=== PATIENT | male | born 1975 | race African-American/Black ===

== ENCOUNTER 2018-10-30 18:26 | Emergency (ER) | payer OTHER ==
[2018-10-30] MEDS ORDERED: TETRACAINE HCL 0.5% 2ML OPTH ONE (19:02)
[2018-10-30] MEDS ORDERED: FLUORESCEIN SODIUM 0.6 MG/WRAP ONE (19:02)
[2018-10-30] MEDS ORDERED: TETANUS & DIPHTHERIA TOX,ADULT 0.5 ML VIAL ONE (19:03)
[2018-10-30] MEDS ORDERED: HYDROCODONE/APAP 5/325 MG TAB ONE (20:10)
[2018-10-30] MEDS ORDERED: TOBRAMYCIN SULF 0.3% OPTH OINT ONE (21:13)
[2018-10-30] MEDS ORDERED: DIPHENHYDRAMINE 25 MG TAB/CAP ONE (21:13)
[2018-10-30] MEDS ORDERED: METHYLPREDNISOLONE 125 MG INJ ONE (21:13)
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
[2018-10-30 21:56] VITALS: TEMP 98; O2SAT 100
[2018-10-30 21:59] VITALS: BP 146/97
== END 2018-10-30 21:49 | disposition home or self-care (01) ==
LOC: ER 18:26
DX: H11.421 Conjunctival edema, right eye (principal); Z23 Encounter for immunization
CPT/HCPCS: 90714; 96372; 99284; J2930

== ENCOUNTER 2020-07-06 21:18 | Emergency (ER) | payer OTHER, SELFPAY ==
--- OUTSIDE RECORDS SUMMARY | 2020-07-06 21:21 | XMS REPORT | Clinical Summary ---
:[address] [facility] Address [address] [place] [address] Care Team Providers Name Role Phone Unavailable Primary Care Provider Unavailable Allergies No Known Allergies Medications Medication Sig Dispensed Refills Start Date End Date Status famotidine (PEPCID) 40 Take 1 tablet by 90 tablet 3 06/28/2019 Active mg tabletIndications: mouth daily. Chronic alcoholic gastritis without hemorrhage mirtazapine (REMERON) Take 1 tablet by 30 tablet 3 06/27/2019 Active 15 mg mouth at bedtime tabletIndications: nightly. Chronic alcoholic gastritis without hemorrhage tamsulosin (FLOMAX) Take 1 capsule by 30 capsule 3 06/28/2019 Active 0.4 mg extended mouth daily. release capsuleIndications: Benign prostatic hyperplasia with urinary frequency Active Problems Problem Noted Date Chronic alcoholic gastritis without hemorrhage 019 Benign prostatic hyperplasia with urinary frequency Substance intoxication 06/27/2019 Overview: Alcohol, cocaine Substance use disorder Cocaine use disorder Marijuana use Acute pain of right wrist Rib pain on left side Visual hallucination Psychosis Substance induced mood disorder Cluster B personality disorder Overview: borderline, antisocial features Social History Tobacco Use Types Packs/Day Years Used Date Current Every Day Smoker Cigarettes 1 30 Smokeless Tobacco: Never Used Tobacco Cessation: Counseling Given: Yes Alcohol Use Drinks/Week oz/Week Comments Yes daily drinker Sex Assigned at Date Recorded Not on file Job Start Date Occupation Industry Not on file Not on file Not on file Travel History Travel Start Travel End No recent travel history available. Last Filed Vital Signs Not on file Plan of Treatment Health Maintenance Due Date Last Done Comments IMM Influenza Seasonal Aug to January (>/= 19 yrs) 08/19/2020 Results Not on fileafter 07/06/2019 Insurance Payer Benefit Plan / Subscriber ID Effective Phone Address T ype Group Dates MEDICARE MEDICARE PART A xxxxxxxxxxx 2017-Pres [phone] [id number] [place] [address] [facility] SELF-PAY SELF-PAY xxxxxxxxx 2019-Prese [phone] [place] [address] [facility] SELF-PA[employer] SELF-PAY xxxxxxx 2020- [id number] [place] [address] Advance Directives Code Status Date Activated Date Inactivated Comments Full Code 06/26/2019 1:35 AM 06/27/2019 5:47 PM
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
--- OUTSIDE RECORDS SUMMARY | 2020-07-06 21:24 | XMS REPORT | Continuity of Care Document ---
:1975 Author Organization [facility] t Address [address] [place] [address] Care Team Providers Name Role Phone Lul Ferguson Attending Clinician Nestor Silva Attending Clinician Uma Guaman Attending Clinician Oscar Xavier Attending Clinician Problems Condition Condition Condition Status Onset Resolution Last Treating Co mments Source Name Details Category Date Date Treatment Clinician Date Chronic Chronic Disease Active Estrella alcoholic alcoholic 06-27 Heal th gastritis gastritis 00:00: without without 00 hemorrhage hemorrhage Benign Benign Disease Active Estrella prostatic prostatic 06-27 Heal th hyperplasi hyperplasi 00:00: a with a with 00 urinary urinary frequency frequency 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Overview: Estrella intoxicati intoxicati 06-27 Alcohol, Health on on 00:00: cocaine 00 PSYCHOSIS Diagnosis Active 2020-02-11 Memoria 06-06 12:04:00 l 00:00: [place] PSYCHOSIS 00 Active 06/06/2019 [facility] LEG PAIN Diagnosis Active 2019-05-24 M emoria 05-24 11:55:00 l LEG PAIN 00:00: Bebo n 00 Active 05/24/2019 [facility] BACK PAIN Diagnosis Active 2016-04-28 Memoria 04-24 22:08:00 l BACK 00:00: [place] PAIN 00 Active 04/24/2016 [facility] LEFT FLANK Diagnosis Active [id number] Memoria PAIN 2-23 22:00:00 l LEFT 00:00: [place] FLANK PAIN 00 Active 11/10/2015 [facility] 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[facility] ris use use Health disorder disorder Cocaine Cocaine Disease Active [place] use use Health disorder disorder Marijuana Marijuana Disease Active [facility] ris use use Health Acute pain Acute pain Disease Active H arris of right of right Health wrist wrist Rib pain Rib pain Disease Active [facility] on left on left Health side side Visual Visual Disease Active [place] hallucinat hallucinat He alth ion ion Psychosis Psychosis Disease Active [facility] 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[facility] ris induced induced Health mood mood disorder disorder Cluster B Cluster B Disease Active Overview: [place] personalit personalit borderlin Health y disorder y disorder e, antisocia l features Acquired Problem Resolve 2019-06-09 Ms moria scoliosis d 21:19:26 l (disorder) Acquired He rmann scoliosis (disorder) Resolved Problem 06/09/2019 [facility] Allergies, Adverse Reactions, Alerts Allergy Allergy Status Severity Reaction(s) Onset Inactive Treating Comm ents Source Name Type Date Date Clinician No Known No Known Active Memori a Medicati Medicati l on on Ryan Allergie Allergie s s Social History Social Habit Start Date Stop Date Quantity Comments Source History of tobacco Cigarette Smoker [facility] use Sex Assigned At [facility] alth Cigarettes smoked 2019-06-27 2019-06-[address] [facility] current (pack per 00:00:00 00:00:00 day) - Reported Cigarette 2019-06-27 2019-06-[address] [facility] pack-years 00:00:00 00:00:00 Alcohol intake 2019-06-27 2019-06-27 Current drinker [facility] 00:00:00 00:00:00 of alcohol (finding) Social History 2019-06-07 2019-06-07 [facility] 08:09:07 08:09:07 Alcohol Comment 2019-05-27 2019-05-[address] [facility] 00:00:00 00:00:00 Smoking Status Start Date Stop Date Source Current every day smoker 2019-06-27 00:00:00 [facility] Social [facility] Medications Ordered Filled Start Stop Current Ordering Indication Dosage Frequency Signature Comments Components Source Medication Medication Date Date Medication? Clinician (SIG) Name Name famotidine 2018- Yes Chronic 40mg QD Take 1 Iglesias rris (PEPCID) 40 8-10 alcoholic tablet by Health mg tablet 00:00: gastritis mouth 00 without daily. hemorrhage tamsulosin Yes Benign .4mg QD Take 1 Darrell ris (FLOMAX) 8-10 prostatic capsule by Health 0.4 mg 00:00: hyperplasia mouth extended 00 with daily. release urinary capsule frequency mirtazapine Yes Chronic 15mg Take 1 H arris (REMERON) 8-09 alcoholic tablet by Health 15 mg 00:00: gastritis mouth at tablet 00 without bedtime hemorrhage nightly. Xylocaine No Notes: Memori a Viscous 2% 7-20 (Same as: l mucous 10:13: Xylocaine) Mary Lou nn membrane 00 solution Al No Notes: Memoria hydroxide/M 7-20 (aluminum l g 10:12: hydroxide- [place] hydroxide/s 00 magnesium imethicone hyd-simeth icone 200-200-20 mg/5ml 30 ml ud FRANKIE) GI cocktail No 30 mL, Nathaniel olman (aluminum 7-20 Route: PO, l hydroxide/m 08:54: Dosing Herm zora agnesium 00 Weight hydroxide/l 93.182, idocaine/si kg, ONCE, methicone) STAT, Start date: 06/07/19 3:54:00 CDT, Stop date: 06/07/19 3:54:00 CDT Famotidine No Notes: Memor ia 7-20 (Same as: l 08:54: Pepcid) [place] 00 Fentanyl No Notes: Memoria 04-24 (Same as: l 13:48: Sublimaze) Ryan 00 Preservat kari free. Sodium No 1,000 mL, Memori a Chloride 04-24 1000 l 0.154 12:31: ml/hr, [place] MEQ/ML 00 Infuse Injectable Over: 1 Solution hr, Route: IV, 1,000, Drug form: INJ, ONCE, Priority: STAT, Dosing Weight 86.364 kg, Start date: 04/24/16 7:31:00 CDT, Duration: 1 doses or times, Stop date: 04/24/16 7:31:00 CDT Morphine No 4 mg, Memoria 04-24 Route: l 11:43: IVP, Drug Ryan 00 form: INJ, ONCE, Dosing Weight 86.364, kg, Priority: STAT, Start date: 04/24/16 6:43:00 CDT, Stop date: 04/24/16 6:43:00 CDT Zofran No Notes: Memoria 04-24 (Same as: l 10:12: Zofran) [place] MEDICATION WASTE Product Size: 4 mg Product Wasted: ___ mg Zofran No 4 mg, Memoria 04-24 Route: l 09:51: IVP, Drug [place] form: INJ, ONCE, Dosing Weight 86.364, kg, Priority: STAT, Start date: 04/24/16 4:51:00 CDT, Stop date: 04/24/16 4:51:00 CDT Orphenadrin No 60 mg, 2 Me moria e 6-06 mL, Route: l 09:32: IVP, Drug [place] form: INJ, ONCE, Dosing Weight 86.364, kg, Priority: STAT, Start date: 04/24/16 4:32:00 CDT, Stop date: 04/24/16 4:32:00 CDT ketOROLAC No 4 days Memor ia 30 mg/mL 04-24 l injectable 09:32: MEDICATION H ermann solution WASTE Product Size: 30 mg Product Wasted: ___ mg Morphine No Notes: Memoria 04-24 (Same l 09:32: as:MORPhin [place] 00 e Sulfate) Saline No Notes: Memoria Flush 0.9% 04-24 Same as: l 09:09: BD [place] 00 Posiflush Sterile Ibuprofen 2014-11 No Notes: Memori a 01-11 (Same as: l 22:31: Motrin) Ryan 00 "Do Not Crush" Take with food. potassium 2014-11 No 20 mEq, Memor ia chloride 01-11 Route: PO, l 19:34: Drug form: [place] 00 ERTAB, ONCE, Dosing Weight 75, kg, Priority: STAT, Start date: 11/10/15 13:34:00, Stop date: 11/10/15 13:34:00 Ketorolac 2014-11 No 4 days Memor ia 2-23 l 15:08: MEDICATION [place] 00 WASTE Product Size: 30 mg Product Wasted: ___ mg Saline 2014-11 No Notes: Memoria Flush 0.9% 2-23 Same as: l 15:08: BD [place] 00 Posiflush Sterile Vital Signs Vital Name Observation Time Observation Value Comments Source Respitory Rate 2019-06-07 14:10:00 Memori al [place] Temperature Oral (F) 2019-06-07 14:10:00 97.9 F [facility] [place] Heart Rate 2019-06-07 14:10:00 [facility] [place] Systolic (mm Hg) 2019-06-07 14:10:00 Nathaniel rial [place] Diastolic (mm Hg) 2019-06-07 14:10:00 Mem orial [place] Temperature Oral (F) 2019-06-07 08:09:00 98.4 F [facility] [place] Respitory Rate 2019-06-07 08:09:00 Memori al [place] Heart Rate 2019-06-07 08:09:00 [facility] [place] Systolic (mm Hg) 2019-06-07 08:09:00 Nathaniel rial [place] Diastolic (mm Hg) 2019-06-07 08:09:00 Mem orial [place] BMI Calculated 2019-06-07 05:55:00 Memori al [place] Weight 2019-06-07 05:55:00 [facility] [place] Temperature Oral (F) 2019-06-07 05:55:00 98.4 F [facility] [place] Respitory Rate 2019-06-07 05:55:00 Memori al [place] Heart Rate 2019-06-07 05:55:00 [facility] [place] Height 2019-06-07 05:55:00 185.42 cm [facility] [place] Systolic (mm Hg) 2019-06-07 05:55:00 Nathaniel rial [place] Diastolic (mm Hg) 2019-06-07 05:55:00 Mem orial [place] Temperature Oral (F) 2019-05-25 21:00:00 98.4 F [facility] [place] Heart Rate 2019-05-25 21:00:00 [facility] [place] Respitory Rate 2019-05-25 21:00:00 Memori al [place] Systolic (mm Hg) 2019-05-25 21:00:00 Nathaniel rial [place] Diastolic (mm Hg) 2019-05-25 21:00:00 Mem orial [place] Heart Rate 2019-05-25 16:00:00 [facility] [place] Temperature Oral (F) 2019-05-25 16:00:00 98.1 F [facility] [place] Respitory Rate 2019-05-25 16:00:00 Memori al [place] Systolic (mm Hg) 2019-05-25 16:00:00 Nathaniel rial [place] Diastolic (mm Hg) 2019-05-25 16:00:00 Mem orial [place] Heart Rate 2019-05-25 10:30:00 [facility] [place] Temperature Oral (F) 2019-05-25 10:30:00 98.1 F [facility] [place] Respitory Rate 2019-05-25 10:30:00 Memori al [place] Systolic (mm Hg) 2019-05-25 10:30:00 Nathaniel rial [place] Diastolic (mm Hg) 2019-05-25 10:30:00 Mem orial [place] Weight 2019-05-24 11:20:00 [facility] [place] Systolic (mm Hg) 2016-04-24 13:43:00 Nathaniel rial [place] Diastolic (mm Hg) 2016-04-24 13:43:00 Mem orial [place] Temperature Oral (F) 2016-04-24 13:43:00 97.8 F [facility] [place] Respitory Rate 2016-04-24 13:43:00 Memori al [place] Heart Rate 2016-04-24 13:43:00 [facility] [place] Systolic (mm Hg) 2016-04-24 11:40:00 Nathaniel rial [place] Diastolic (mm Hg) 2016-04-24 11:40:00 Mem orial [place] Respitory Rate 2016-04-24 11:40:00 Memori al [place] Temperature Oral (F) 2016-04-24 11:40:00 97.8 F [facility] [place] Heart Rate 2016-04-24 11:40:00 [facility] [place] Respitory Rate 2016-04-24 07:54:00 Memori al [place] Temperature Oral (F) 2016-04-24 07:54:00 97.7 F [facility] [place] Height 2016-04-24 07:54:00 187.96 cm [facility] [place] Weight 2016-04-24 07:54:00 [facility] [place] BMI Calculated 2016-04-24 07:54:00 Memori al [place] Heart Rate 2016-04-24 07:54:00 [facility] [place] Systolic (mm Hg) 2016-04-24 07:54:00 Nathaniel rial [place] Diastolic (mm Hg) 2016-04-24 07:54:00 Mem orial [place] Heart Rate 2015-11-11 06:39:00 [facility] [place] Temperature Oral (F) 2015-11-11 06:39:00 97.9 F [facility] [place] Respitory Rate 2015-11-11 06:39:00 Memori al [place] Systolic (mm Hg) 2015-11-11 06:39:00 Nathaniel rial [place] Diastolic (mm Hg) 2015-11-11 06:39:00 Mem orial [place] Systolic (mm Hg) 2015-11-11 04:23:00 Nathaniel rial [place] Diastolic (mm Hg) 2015-11-11 04:23:00 Mem orial [place] Respitory Rate 2015-11-11 04:23:00 Memori al [place] Heart Rate 2015-11-11 04:23:00 [facility] [place] Temperature Oral (F) 2015-11-11 04:23:00 97.7 F [facility] [place] Systolic (mm Hg) 2015-11-10 22:40:00 Nathaniel rial [place] Diastolic (mm Hg) 2015-11-10 22:40:00 Mem orial [place] Respitory Rate 2015-11-10 22:40:00 Memori al [place] Heart Rate 2015-11-10 22:40:00 [facility] [place] Temperature Oral (F) 2015-11-10 22:40:00 97.7 F [facility] [place] Weight 2015-11-10 14:41:00 [facility] [place] Height 2015-11-10 14:41:00 185.42 cm [facility] [place] BMI Calculated 2015-11-10 14:41:00 Memori al [place] Procedures Procedure Date / Time Performed Performing Clinician Sour e Spinal operation Memorial Bebo n Splenectomy [facility] [place] Plan of Care Planned Activity Planned Date Details Comments Source Future Scheduled Test 2020-08-19 00:00:[address] [facility] Seasonal Aug to January (>/= 19 yrs) [code = IMM Influenza Seasonal Aug to January (>/= 19 yrs)] Encounters Start End Encounter Admission Attending Care Care Encounter Source Date/Time Date/Time Type Type Clinicians Facility Department ID 2019-07-14 2019-07-14 Outpatient [facility] [id number] [address] [place] [address] 00:00:00 00:00:00 Health 2019-07-08 2019-07-08 Outpatient [facility] [id number] [place] 00:00:00 00:00:00 Health 2019-06-26 2019-06-26 Outpatient [facility] [id number] [place] 07:30:29 07:30:29 Health 2019-06-25 2019-06-25 Emergency [facility] [id number] [place] 22:51:50 22:51:50 Health 2019-06-25 2019-06-25 Outpatient [facility] [id number] [place] 08:00:22 08:00:22 Health 2019-06-12 2019-06-12 Outpatient [facility] [id number] [place] 00:00:00 00:00:00 [facility] 2019-06-07 2019-06-07 Outpatient Marty [facility] [id number] 00:31:47 09:47:00 Lzizy Mccarty 2019-06-07 2019-06-07 Emergency E [facility] [id number] [facility] 00:31:00 00:31:00 2019-06-06 2019-06-06 Emergency [facility] [id number] [place] 07:31:55 07:31:55 Health 2019-05-27 2019-05-27 Emergency [facility] [id number] [place] 09:49:06 09:49:06 Health 2019-05-27 2019-05-27 Emergency [facility] [id number] [place] 08:10:12 08:10:12 [facility] 2019-05-24 2019-05-25 Outpatient Ricardo [facility] [id number] 06:15:41 16:59:00 Danieljavy Baez 2019-05-24 2019-05-24 Emergency E [facility] [id number] [facility] 06:15:00 06:15:00 2016-04-24 2016-04-24 Outpatient Obi [facility] [id number] 02:42:00 09:36:00 Cristel osorio 01 Uma 2015-11-10 2015-11-11 Outpatient Logan Xavier [facility] [id number] 08:40:00 00:48:00 Oscar 00 Results Test Description Test Time Test Comments Results Result Comments Source RPR Qualitative 2019-06-20 07:09:29 Test Item Value Reference Range Interpretation Comme nts RPR Qual (test code = RPR Qual) Non-Reactive Non-Reactive Reactive Control (test code = Reactive Control) Reactive Weak Reactive Control (test code = Weak Reactive Weak Reactive Control) Non-Reactive Control (test code = Non-Reactive Non-Reactive Control) Lot # (test code = Lot #) [id number] Expiration Dt (test code = Expiration Dt) 09/18/2020 N Thyroid Stimulating [id number] 04:02:31 Test Item Value Reference Range Interpretation Comments TSH (test code = TSH) 1.240 mIU/mL 0.270-4.200 Lipid [id number] 03:53:56 Test Item Value Reference Range Interpretation Comments Cholesterol Total 198 mg/dL 0-200 RISK OF HE ART (test code = DISEASEPublishe d by Cholesterol Total) [place] [employer] Adenike lyte Optimal Borderl ine Increased RiskC HOL <200 200-239 >2 40TRIG <150 150-199 >2 00HDL Male >60 <40H DL Female >60 <5 0LDL <100 130-159 >1 60LDL Near optimal is 100-129 Triglycerides (test 98 mg/dL 9-200 code = Triglycerides) HDL (test code = HDL) 79 mg/dL 40-60 H LDL (test code = LDL) 99 mg/dL 0-130 The eq uation being used in this calcula tion is LDL = (Chol - H DL) - (Trig / 5) VLDL (test code = 20 mg/dL 5-40 The equati on being used VLDL) in this calcula tion is VLDL = Trig / 5 Chol/HDL (test code = 2.5 ratio 0.0-5.0 Chol/HDL) LDL/HDL Ratio (test 1 N The equa tion being used code = LDL/HDL Ratio) in thi s calculation is LDL/HDL Ratio=L DL Calc/HDL Chol Comprehensive Metabolic [id number] 09:03:57 Test Item Value Reference Range Interpretation Comments Sodium Level (test 135.0 mmol/L 135.0-145.0 code = Sodium Level) Potassium Level 3.7 mmol/L 3.5-5.1 (test code = Potassium Level) Chloride Level (test 96 mmol/L 98-105 L code = Chloride Level) CO2 (test code = 32 mmol/L 22-29 H CO2) Anion Gap (test code 7 mmol/L 7-16 = Anion Gap) BUN (test code = 12.30 mg/dL 6.00-20.00 BUN) Creatinine Level 1.00 mg/dL 0.70-1.20 (test code = Creatinine Level) BUN/Creat Ratio 12 N (test code = BUN/Creat Ratio) Glucose Level (test 141 mg/dL 70-115 H code = Glucose Level) Calcium Level (test 8.7 mg/dL 8.3-10.5 code = Calcium Level) Alk Phos (test code 154 U/L 40-129 H = Alk Phos) Bilirubin Total 0.8 mg/dL 0.1-0.9 (test code = Bilirubin Total) Albumin Level (test 4.3 g/dL 3.5-5.2 code = Albumin Level) Protein Total (test 7.0 g/dL 6.4-8.3 code = Protein Total) ALT (test code = 216 U/L 1-41 H ALT) AST (test code = 138 U/L 1-40 H AST) Globulin (test code 2.7 g/dL 2.9-3.1 L = Globulin) A/G Ratio (test code 1.6 ratio N = A/G Ratio) eGFR AA (test code = >60 N eGFR (e stimated eGFR AA) mL/min/1.73 m2 Glomerular Filtration Rate ) is an estimated va lue, calculated from the patient's serum creatinine usin g the MDRD equation. It is NOT the patient 's actual GFR. The eGFR provides a more clinically usef ul measure of kidn ey disease than se rum creatinine alone.This calculation arjun es sex and race in to account, if the information is provided. If th e race is not provided, and t he patient is -Riya n, multiply by 1.2 12. If sex is not provided, and t he patient is fema le, multiply by 0.7 42. Results for pat ients <18 years of ag e have not been validated by th e MDRD study and should be interpreted wit h caution. eGFR R esult Interpretation: eGFR > or = 60 is in the Normal RangeeGF R < 60 may mean kid alexey diseaseeGFR < 1 5 may mean kidney failure Rang es recommended by the National Kidney Foundation, http://nkdep.ni h.gov Comprehensive Metabolic [id number] 09:03:57 Test Item Value Reference Range Interpretation Comments Sodium Level (test 135.0 mmol/L 135.0-145.0 code = Sodium Level) Potassium Level 3.7 mmol/L 3.5-5.1 (test code = Potassium Level) Chloride Level (test 96 mmol/L 98-105 L code = Chloride Level) CO2 (test code = 32 mmol/L 22-29 H CO2) Anion Gap (test code 7 mmol/L 7-16 = Anion Gap) BUN (test code = 12.30 mg/dL 6.00-20.00 BUN) Creatinine Level 1.00 mg/dL 0.70-1.20 (test code = Creatinine Level) BUN/Creat Ratio 12 N (test code = BUN/Creat Ratio) Glucose Level (test 141 mg/dL 70-115 H code = Glucose Level) Calcium Level (test 8.7 mg/dL 8.3-10.5 code = Calcium Level) Alk Phos (test code 154 U/L 40-129 H = Alk Phos) Bilirubin Total 0.8 mg/dL 0.1-0.9 (test code = Bilirubin Total) Albumin Level (test 4.3 g/dL 3.5-5.2 code = Albumin Level) Protein Total (test 7.0 g/dL 6.4-8.3 code = Protein Total) ALT (test code = 216 U/L 1-41 H ALT) AST (test code = 138 U/L 1-40 H AST) Globulin (test code 2.7 g/dL 2.9-3.1 L = Globulin) A/G Ratio (test code 1.6 ratio N = A/G Ratio) eGFR AA (test code = >60 N eGFR (e stimated eGFR AA) mL/min/1.73 m2 Glomerular Filtration Rate ) is an estimated va lue, calculated from the patient's serum creatinine usin g the MDRD equation. It is NOT the patient 's actual GFR. The eGFR provides a more clinically usef ul measure of kidn ey disease than se rum creatinine alone.This calculation arjun es sex and race in to account, if the information is provided. If th e race is not provided, and t he patient is -Riya n, multiply by 1.2 12. If sex is not provided, and t he patient is rosi le, multiply by 0.7 42. Results for pat ients <18 years of ag e have not been validated by e MDRD study and should be interpreted wit h caution. eGFR R esult Interpretation: eGFR > or = 60 is in the Normal RangeeGF R < 60 may mean kid alexey diseaseeGFR < 1 5 may mean kidney failure Rang es recommended by the National Kidney Foundation, http://nkdep.ni h.gov Alcohol [id number] 09:03:57 Test Item Value Reference Range Interpretation Comments Ethanol Level (test <0.00 g/dL 0.00-0.01 Intoxica maury 0.080 g/dL code = Ethanol or more Level) Ethanol Inst (test <0 N code = Ethanol Inst) Comprehensive Metabolic [id number] 09:03:57 Test Item Value Reference Range Interpretation Comments Sodium Level (test 135.0 mmol/L 135.0-145.0 code = Sodium Level) Potassium Level 3.7 mmol/L 3.5-5.1 (test code = Potassium Level) Chloride Level (test 96 mmol/L 98-105 L code = Chloride Level) CO2 (test code = 32 mmol/L 22-29 H CO2) Anion Gap (test code 7 mmol/L 7-16 = Anion Gap) BUN (test code = 12.30 mg/dL 6.00-20.00 BUN) Creatinine Level 1.00 mg/dL 0.70-1.20 (test code = Creatinine Level) BUN/Creat Ratio 12 N (test code = BUN/Creat Ratio) Glucose Level (test 141 mg/dL 70-115 H code = Glucose Level) Calcium Level (test 8.7 mg/dL 8.3-10.5 code = Calcium Level) Alk Phos (test code 154 U/L 40-129 H = Alk Phos) Bilirubin Total 0.8 mg/dL 0.1-0.9 (test code = Bilirubin Total) Albumin Level (test 4.3 g/dL 3.5-5.2 code = Albumin Level) Protein Total (test 7.0 g/dL 6.4-8.3 code = Protein Total) ALT (test code = 216 U/L 1-41 H ALT) AST (test code = 138 U/L 1-40 H AST) Globulin (test code 2.7 g/dL 2.9-3.1 L = Globulin) A/G Ratio (test code 1.6 ratio N = A/G Ratio) eGFR AA (test code = >60 N eGFR (e stimated eGFR AA) mL/min/1.73 m2 Glomerular Filtration Rate ) is an estimated va lue, calculated from the patient's serum creatinine usin g the MDRD equation. It is NOT the patient 's actual GFR. The eGFR provides a more clinically usef ul measure of kidn ey disease than se rum creatinine alone.This calculation arjun es sex and race in to account, if the information is provided. If th e race is not provided, and t he patient is -Riya n, multiply by 1.2 12. If sex is not provided, and t he patient is fema le, multiply by 0.7 42. Results for pat ients <18 years of ag e have not been validated by [facility] MDRD study and should be interpreted wit h caution. eGFR R esult Interpretation: eGFR > or = 60 is in the Normal RangeeGF R < 60 may mean kid alexey diseaseeGFR < 1 5 may mean kidney failure Rang es recommended by the National Kidney Foundation, http://nkdep.ni h.gov eGFR Non-AA (test >60.00 N eGFR (boby mated code = eGFR Non-AA) mL/min/1.73 m2 Glomer ular Filtration Rate ) is an estimated va lue, calculated from the patient's serum creatinine usin g the MDRD equation. It is NOT the patient 's actual GFR. The eGFR provides a more clinically usef ul measure of kidn ey disease than se rum creatinine alone.This calculation arjun es sex and race in to account, if the information is provided. If th e race is not provided, and t he patient is -Riya n, multiply by 1.2 12. If sex is not provided, and t he patient is fema le, multiply by 0.7 42. Results for pat ients <18 years of ag e have not been validated by [facility] MDRD study and should be interpreted wit h caution. eGFR R esult Interpretation: eGFR > or = 60 is in the Normal RangeeGF R < 60 may mean kid alexey diseaseeGFR < 1 5 may mean kidney failure Rang es recommended by the National Kidney Foundation, http://nkdep.ni h.gov Urine Drug [id number] 09:00:04 Test Item Value Reference Range Interpretation Comments Amphetamine Screen Ur POSITIVE Negative A (test code = Amphetamine Screen Ur) Barbiturate Screen Ur Negative Negative (test code = Barbiturate Screen Ur) Benzodiazepines Ur (test Negative Negative code = Benzodiazepines Ur) Cocaine Screen Ur (test POSITIVE Negative A code = Cocaine Screen Ur) U Methadone Scr (test Negative Negative code = U Methadone Scr) Opiate Screen Ur (test Negative Negative code = Opiate Screen Ur) U PCP Scrn (test code = Negative Negative U PCP Scrn) Cannabinoid Screen Ur POSITIVE Negative A (test code = Cannabinoid Screen Ur) U TCA (test code = U Negative Negative The res ults of all TCA) drug screen ramy ts are only preliminar y. Clinical consideration a nd professional ju dgment should be appli ed to any drug of abu se test result, particularly wh en preliminary pos itive results are obt ained. Please order a separate confir matory test if desired . Complete Blood Count with [id number] 08:56:00 Test Item Value Reference Range Interpretation Comments WBC (test code = WBC) 13.6 x10 4.4-10.5 H RBC (test code = RBC) 4.60 x10 4.10-5.70 Hgb (test code = Hgb) 14.0 g/dL 13.4-17.4 MCV (test code = MCV) 89.10 fL 80.00-100.00 Hct (test code = Hct) 41.0 % 38.7-52.0 MCHC (test code = 34.10 g/dL 32.00-37.50 MCHC) MCH (test code = MCH) 30.4 pg 27.0-32.5 RDW CV (test code = 13.8 % 11.5-14.5 RDW CV) Platelets (test code = 377.0 x10 140.0-440.0 Platelets) MPV (test code = MPV) 8.9 fL N Slide Review (test Auto Auto Result cr eated by code = Slide Review) GL_SJM_ SLIDE_REV_AUTO [id number] nRBC (test code = 0 N nRBC) NRBC Abs (test code = 0.00 x10 N NRBC Abs) Pos Diff XN (test code A N = Pos Diff XN) IPF (test code = IPF) 0 % N Automated [id number] 08:56:00 Test Item Value Reference Range Interpretation Comments Neutro Auto (test code = Neutro 60.3 % 36.0-70.0 Auto) Lymph Auto (test code = Lymph Auto) 25.4 % 12.0-44.0 Ray Auto (test code = Ray Auto) 11.8 % 0.0-11.0 H Eos, Auto (test code = Eos, Auto) 1.8 % 0.0-7.0 Basophil Auto (test code = Basophil 0.3 % 0.0-2.0 Auto) Neutro Absolute (test code = Neutro 8.2 x10 1.6-7.4 H Absolute) Lymph Absolute (test code = Lymph 3.45 x10 .50-4.60 Absolute) Ray Absolute (test code = Ray 1.60 x10 .00-1.20 H Absolute) Eos Absolute (test code = Eos 0.25 x10 0.00-0.74 Absolute) Baso Absolute (test code = Baso 0.04 x10 0.00-0.21 Absolute) IG [id number] 08:56:00 Test Item Value Reference Range Interpretation Comments IG (test code = IG) 0.4 % 0.0-5.0 IG Abs (test code = IG Abs) 0 x10 N Hepatic Function [id number] 07:34:47 Test Item Value Reference Range Interpretation Comments Protein Total (test 6.4 g/dL 6.4-8.3 code = Protein Total) Albumin Level (test 3.9 g/dL 3.5-5.2 code = Albumin Level) Bilirubin Total 0.2 mg/dL 0.1-0.9 (test code = Bilirubin Total) Bilirubin Direct <0.2 mg/dL 0.0-0.3 Direct Bili beckford (test code = methodology may be Bilirubin Direct) affected b y hemolysis. Bilirubin Indirect >0.00 mg/dL N (test code = Bilirubin Indirect) Alk Phos (test code 144 U/L 40-129 H = Alk Phos) AST (test code = 318 U/L 1-40 H AST) ALT (test code = 489 U/L 1-41 H ALT) A/G Ratio (test code 1.6 ratio N = A/G Ratio) Globulin (test code 2.5 g/dL 2.9-3.1 L = Globulin) Hepatic Function [id number] 08:08:04 Test Item Value Reference Range Interpretation Comments Protein Total (test 6.4 g/dL 6.4-8.3 code = Protein Total) Albumin Level (test 3.8 g/dL 3.5-5.2 code = Albumin Level) Bilirubin Total 0.3 mg/dL 0.1-0.9 (test code = Bilirubin Total) Bilirubin Direct <0.2 mg/dL 0.0-0.3 Direct Bili beckford (test code = methodology may be Bilirubin Direct) affected b y hemolysis. Bilirubin Indirect >0.10 mg/dL N (test code = Bilirubin Indirect) Alk Phos (test code 136 U/L 40-129 H = Alk Phos) AST (test code = 369 U/L 1-40 H AST) ALT (test code = 542 U/L 1-41 H ALT) A/G Ratio (test code 1.5 ratio N = A/G Ratio) Globulin (test code 2.6 g/dL 2.9-3.1 L = Globulin) US Abdomen [id number] 02:36:18Patient: PAULO GARCIA Date/Time06/08/2019 21:54 CDTReason for ExamElevated liver function testReportAFTER HOURS SERVICE ON: 06/09/2019 2:35 AMA bdominal Ultrasound, Right Upper QuadrantLocation Code V27Vxriezo: Elevated liver function testTechnique: Real-time silva scale, Doppler spectral analysis and Doppler color flow evaluation was performedusing a dedicated transducer.Findings:Examination limited. The lungs lobe of the liver, pancreas, aorta and IVC are not well visualized.The liver is homogeneous. There is no surface nodularity. No ascites in the abdomen.The gallbladder is not thickened and there is no pericholecystic fluid. There are no gallstones. There is no biliary dilatation. Common bile duct measures 5 mm.Right kidney measures 10 x 5 x 6 cm. There is a lower pole 2.9 x 2.9 x 2.6 cm anechoic cyst. No hydronephrosis or calculi are seen. Adequate arterial inflow and venous outflow noted in the kidney.Impression:No acute findings.Simple right renal cyst. Final Dictated by: MD Li Mohammad TDictated DT/TM:06/09/2019 2:35 amSigned by: MD Li Mohammad TSigned (Electronic Signature): 06/09/2019 2:36 amRPR [id number] 10:51:41 Test Item Value Reference Range Interpretation Comments RPR Qual (test code = RPR Qual) Non-Reactive Non-Reactive Reactive Control (test code = Reactive Reactive Control) Weak Reactive Control (test Weak Reactive code = Weak Reactive Control) Non-Reactive Control (test code Non-Reactive = Non-Reactive Control) Lot # (test code = Lot #) [id number] N Expiration Dt (test code = 10.31.20 N Expiration Dt) Thyroid Stimulating [id number] 08:39:04 Test Item Value Reference Range Interpretation Comments TSH (test code = TSH) 0.815 mIU/mL 0.270-4.200 Hemoglobin [id number] 03:57:32 Test Item Value Reference Range Interpretation Comments Hemoglobin A1c (test code 5.5 % 4.8-5.9 No n Diabetic = Hemoglobin A1c) 4.8-5.9%Di abetic <7.0% Aspartate [id number] 23:35:01 Test Item Value Reference Range Interpretation Comments AST (test code = AST) 622 U/L 1-40 H Alkaline Yptcjcllpno8882-47-79 23:35:01 Test Item Value Reference Range Interpretation Comments Alk Phos (test code = Alk Phos) 120 U/L 40-129 Acetaminophen [id number] 21:52:40 Test Item Value Reference Range Interpretation Comments Acetaminophen Level (test code <15.0 ug/mL(g) 15.0-30.0 = Acetaminophen Level) Salicylate [id number] 21:52:40 Test Item Value Reference Range Interpretation Comments Salicylate Level (test code = <0.3 mg/dL 0.3-10.0 Salicylate Level) Lipase [id number] 21:52:39 Test Item Value Reference Range Interpretation Comments Lipase Level (test code = Lipase 19 U/L 13-60 Level) Acute Hepatitis [id number] 21:21:54 Test Item Value Reference Range Interpretation Comments Hep A IgM (test code = Hep A IgM) Nonreactive Non Reactive Hep B Core Ab IgM (test code = Nonreactive Non Reactive Hep B Core Ab IgM) Hep Bs Ag (test code = Hep Bs Ag) Nonreactive Non Reactive Hep C Ab (test code = Hep C Ab) Reactive Non Reactive A Ammonia [id number] 20:53:09 Test Item Value Reference Range Interpretation Comments Ammonia Level (test code = 46.0 umol/L 11.0-35.0 H Ammonia Level) Prothrombin Time and [id number] 20:48:56 Test Item Value Reference Range Interpretation Comments Prothrombin Time (test code = 12.9 seconds 9.8-13.4 Prothrombin Time) INR (test code = INR) 1.1 ratio 0.6-1.2 Partial Thromboplastin [id number] 20:48:56 Test Item Value Reference Range Interpretation Comments Partial Thromboplastin Time 29.20 seconds 24.39-37.25 (test code = Partial Thromboplastin Time) Comprehensive Metabolic [id number] 19:11:35 Test Item Value Reference Range Interpretation Comments Sodium Level (test code = Sodium 140.0 mmol/L 135.0-145.0 Level) Potassium Level (test code = 4.6 mmol/L 3.5-5.1 Potassium Level) Chloride Level (test code = 100 mmol/L 98-105 Chloride Level) CO2 (test code = CO2) 24 mmol/L 22-29 Anion Gap (test code = Anion 16 mmol/L 7-16 Gap) BUN (test code = BUN) 14.70 mg/dL 6.00-20.00 Creatinine Level (test code = 1.10 mg/dL 0.70-1.20 Creatinine Level) BUN/Creat Ratio (test code = 13 N BUN/Creat Ratio) Glucose Level (test code = 113 mg/dL 70-115 Glucose Level) Calcium Level (test code = 9.3 mg/dL 8.3-10.5 Calcium Level) Alk Phos (test code = Alk Phos) 149 U/L 40-129 H Bilirubin Total (test code = 0.3 mg/dL 0.1-0.9 Bilirubin Total) Albumin Level (test code = 4.3 g/dL 3.5-5.2 Albumin Level) Protein Total (test code = 7.4 g/dL 6.4-8.3 Protein Total) ALT (test code = ALT) >700 U/L 1-41 H AST (test code = AST) >700 U/L 1-40 H Globulin (test code = Globulin) 3.1 g/dL 2.9-3.1 A/G Ratio (test code = A/G 1.4 ratio N Ratio) Comprehensive Metabolic [id number] 19:11:35 Test Item Value Reference Range Interpretation Comments Sodium Level (test 140.0 mmol/L 135.0-145.0 code = Sodium Level) Potassium Level 4.6 mmol/L 3.5-5.1 (test code = Potassium Level) Chloride Level (test 100 mmol/L 98-105 code = Chloride Level) CO2 (test code = 24 mmol/L 22-29 CO2) Anion Gap (test code 16 mmol/L 7-16 = Anion Gap) BUN (test code = 14.70 mg/dL 6.00-20.00 BUN) Creatinine Level 1.10 mg/dL 0.70-1.20 (test code = Creatinine Level) BUN/Creat Ratio 13 N (test code = BUN/Creat Ratio) Glucose Level (test 113 mg/dL 70-115 code = Glucose Level) Calcium Level (test 9.3 mg/dL 8.3-10.5 code = Calcium Level) Alk Phos (test code 149 U/L 40-129 H = Alk Phos) Bilirubin Total 0.3 mg/dL 0.1-0.9 (test code = Bilirubin Total) Albumin Level (test 4.3 g/dL 3.5-5.2 code = Albumin Level) Protein Total (test 7.4 g/dL 6.4-8.3 code = Protein Total) ALT (test code = >700 U/L 1-41 H ALT) AST (test code = >700 U/L 1-40 H AST) Globulin (test code 3.1 g/dL 2.9-3.1 = Globulin) A/G Ratio (test code 1.4 ratio N = A/G Ratio) eGFR AA (test code = >60 N eGFR (e stimated eGFR AA) mL/min/1.73 m2 Glomerular Filtration Rate ) is an estimated va lue, calculated from the patient's serum creatinine usin g the MDRD equation. It is NOT the patient 's actual GFR. The eGFR provides a more clinically usef ul measure of kidn ey disease than se rum creatinine alone.This calculation arjun es sex and race in to account, if the information is provided. If th e race is not provided, and t he patient is -Riya n, multiply by 1.2 12. If sex is not provided, and t he patient is fema le, multiply by 0.7 42. Results for pat ients <18 years of ag e have not been validated by th e MDRD study and should be interpreted wit h caution. eGFR R esult Interpretation: eGFR > or = 60 is in the Normal RangeeGF R < 60 may mean kid alexey diseaseeGFR < 1 5 may mean kidney failure Rang es recommended by the National Kidney Foundation, http://nkdep.ni h.gov Alcohol [id number] 19:11:35 Test Item Value Reference Range Interpretation Comments Ethanol Level (test 0.15 g/dL 0.00-0.01 H Intoxica maury 0.080 g/dL code = Ethanol or more Level) Ethanol Inst (test 150 N code = Ethanol Inst) Comprehensive Metabolic [id number] 19:11:35 Test Item Value Reference Range Interpretation Comments Sodium Level (test 140.0 mmol/L 135.0-145.0 code = Sodium Level) Potassium Level 4.6 mmol/L 3.5-5.1 (test code = Potassium Level) Chloride Level (test 100 mmol/L 98-105 code = Chloride Level) CO2 (test code = 24 mmol/L 22-29 CO2) Anion Gap (test code 16 mmol/L 7-16 = Anion Gap) BUN (test code = 14.70 mg/dL 6.00-20.00 BUN) Creatinine Level 1.10 mg/dL 0.70-1.20 (test code = Creatinine Level) BUN/Creat Ratio 13 N (test code = BUN/Creat Ratio) Glucose Level (test 113 mg/dL 70-115 code = Glucose Level) Calcium Level (test 9.3 mg/dL 8.3-10.5 code = Calcium Level) Alk Phos (test code 149 U/L 40-129 H = Alk Phos) Bilirubin Total 0.3 mg/dL 0.1-0.9 (test code = Bilirubin Total) Albumin Level (test 4.3 g/dL 3.5-5.2 code = Albumin Level) Protein Total (test 7.4 g/dL 6.4-8.3 code = Protein Total) ALT (test code = >700 U/L 1-41 H ALT) AST (test code = >700 U/L 1-40 H AST) Globulin (test code 3.1 g/dL 2.9-3.1 = Globulin) A/G Ratio (test code 1.4 ratio N = A/G Ratio) eGFR AA (test code = >60 N eGFR (e stimated eGFR AA) mL/min/1.73 m2 Glomerular Filtration Rate ) is an estimated va lue, calculated from the patient's serum creatinine usin g the MDRD equation. It is NOT the patient 's actual GFR. The eGFR provides a more clinically usef ul measure of kidn ey disease than se rum creatinine alone.This calculation arjun es sex and race in to account, if the information is provided. If th e race is not provided, and t he patient is -Riya n, multiply by 1.2 12. If sex is not provided, and t he patient is fema le, multiply by 0.7 42. Results for pat ients <18 years of ag e have not been validated by th e MDRD study and should be interpreted wit h caution. eGFR R esult Interpretation: eGFR > or = 60 is in the Normal RangeeGF R < 60 may mean kid alexey diseaseeGFR < 1 5 may mean kidney failure Rang es recommended by the National Kidney Foundation, http://nkdep.ni h.gov eGFR Non-AA (test >60.00 N eGFR (boby mated code = eGFR Non-AA) mL/min/1.73 m2 Glomer ular Filtration Rate ) is an estimated va lue, calculated from the patient's serum creatinine usin g the MDRD equation. It is NOT the patient 's actual GFR. The eGFR provides a more clinically usef ul measure of kidn ey disease than se rum creatinine alone.This calculation arjun es sex and race in to account, if the information is provided. If th e race is not provided, and t he patient is -Riya n, multiply by 1.2 12. If sex is not provided, and t he patient is fema le, multiply by 0.7 42. Results for pat ients <18 years of ag e have not been validated by th e MDRD study and should be interpreted wit h caution. eGFR R esult Interpretation: eGFR > or = 60 is in the Normal RangeeGF R < 60 may mean kid alexey diseaseeGFR < 1 5 may mean kidney failure Rang es recommended by the National Kidney Foundation, http://nkdep.ni h.gov Drugs of Abuse Urine [id number] 19:10:52 Test Item Value Reference Range Interpretation Comments Amphetamine Screen Ur POSITIVE Negative A For di agnostic (test code = Amphetamine pur poses only. Screen Ur) Positive result s should always b e assessed in conjunction wit h a patient's medic al history. Barbiturate Screen Ur Negative Negative (test code = Barbiturate Screen Ur) Benzodiazepines Ur (test Negative Negative code = Benzodiazepines Ur) Cocaine Screen Ur (test POSITIVE Negative A code = Cocaine Screen Ur) U Methadone (test code = Negative Negative U Methadone) Opiate Screen Ur (test Negative Negative code = Opiate Screen Ur) U PCP Scrn (test code = U Negative Negative PCP Scrn) U Propoxyphene (test code Negative Negative = U Propoxyphene) Cannabinoid Screen Ur POSITIVE Negative A (test code = Cannabinoid Screen Ur) Automated [id number] 18:00:02 Test Item Value Reference Range Interpretation Comments Neutro Auto (test code = Neutro 64.1 % 36.0-70.0 Auto) Lymph Auto (test code = Lymph Auto) 22.7 % 12.0-44.0 Ray Auto (test code = Ray Auto) 11.1 % 0.0-11.0 H Eos, Auto (test code = Eos, Auto) 1.5 % 0.0-7.0 Basophil Auto (test code = Basophil 0.3 % 0.0-2.0 Auto) Neutro Absolute (test code = Neutro 6.0 x10 1.6-7.4 Absolute) Lymph Absolute (test code = Lymph 2.13 x10 .50-4.60 Absolute) Ray Absolute (test code = Ray 1.04 x10 .00-1.20 Absolute) Eos Absolute (test code = Eos 0.14 x10 0.00-0.74 Absolute) Baso Absolute (test code = Baso 0.03 x10 0.00-0.21 Absolute) IG [id number] 18:00:02 Test Item Value Reference Range Interpretation Comments IG (test code = IG) 0.3 % 0.0-5.0 IG Abs (test code = IG Abs) 0 x10 N Complete Blood Count with Gvoxogowjjpg1025-42-64 18:00:01 Test Item Value Reference Range Interpretation Comments WBC (test code = WBC) 9.4 x10 4.4-10.5 RBC (test code = RBC) 4.79 x10 4.10-5.70 Hgb (test code = Hgb) 14.5 g/dL 13.4-17.4 Hct (test code = Hct) 42.9 % 38.7-52.0 MCV (test code = MCV) 89.60 fL 80.00-100.00 MCHC (test code = 33.80 g/dL 32.00-37.50 MCHC) MCH (test code = MCH) 30.3 pg 27.0-32.5 RDW CV (test code = 14.7 % 11.5-14.5 H RDW CV) Platelets (test code = 363.0 x10 140.0-440.0 Platelets) MPV (test code = MPV) 9.0 fL N Slide Review (test Auto Auto Result cr eated by code = Slide Review) GL_SJM_ SLIDE_REV_AUTO nRBC (test code = 0 N nRBC) NRBC Abs (test code = 0.00 x10 N NRBC Abs) IPF (test code = IPF) 0 % N CHEM [id number] 09:02:00 Test Item Value Reference Range Interpretation Comments B/C Ratio (test code = B/C Ratio) 14 1 6-25 [facility] shopatplacesannCHEM [id number] 09:02:0013.4[facility] HermannCHEM PANEL 2019-06-07 09:02:00 Test Item Value Reference Range Interpretation Comments A/G Ratio (test code = A/G Ratio) 0.8 1 0.7-1.6 [facility] shopatplacesannCHEM [id number] 09:02:004.3[facility] HermannCHEM PANEL 2019-06-07 09:02:93295Vvuptmfk HermannCHEM HSKXN1094-13-12 09:02:000.96[facility] HermannCHEM WHKLL9224-17-28 09:02:0013[facility] HermannCHEM LHDEM0400-23-27 09:02:69141Yzrnfary HermannCHEM BBNGG4517-99-35 09:02:004.4[facility]annCHEM YMUBW1347-33-88 09:02:0090[facility]annCHEM YLHHJ4320-77-33 09:02:009.3 [facility]annCHEM RBCOW7184-80-93 09:02:0027[facility]annCHEM PANEL 2019-06-07 09:02:65800Fmqjgyfz HermannCHEM QEODA1668-93-27 09:02:007.7[facility] HermannCHEM FJEMK7773-58-57 09:02:72358Tpdijsjw HermannCHEM WGYIM6969-88-15 09:02:003.4[facility] HermannCHEM NTHFG1594-46-30 09:02:86753Agyuaugg HermannCHEM GZWNC5641-48-13 09:02:65967Vngezwtz HermannCHEM OYBGI3417-93-13 09:02:000.4 [facility]annCHEM BNMTF4386-69-20 09:02:0063[facility]annHEMATOLOGY 2019-06-07 09:02:000.6[facility] JmhkyktHZSJRDSWYO6360-86-78 09:02:001.4[facility] KhumhxbYWRQGDIMHF2087-91-44 09:02:000.2[facility] FxbmebiTAOTDCKPRL1254-32-42 09:02:001.6[facility] FdkltaoGHFTOWWKDJ0295-41-45 09:02:000.1[facility] LPKVCOWBFR7352-77-87 09:02:002.8[facility] OzjctswKYIOLRTUHX7872-61-74 09:02:009.0 [facility] XkeonywEUNXVXDEGW1488-79-78 09:02:0011.8[facility] HermannHEMATOLOGY 2019-06-07 09:02:0020.3[facility] UtyfffpLFPRHEBUJX0824-81-32 09:02:0065.9[facility] CszorpwMTVGCHPZLG5900-04-51 09:02:00 Test Item Value Reference Range Interpretation Comments MCH (test code = MCH) 30.3 pg 27.0-31.0 [facility] MgkyawnDVYFKPPYOJ8261-57-25 09:02:0032.8[facility] HermannHEMATOLOGY 2019-06-07 09:02:0044.1[facility] KidjrdzKQOALXVITX6204-69-06 09:02:0014.5[facility] KegcpmdQLCFEOOZWU3983-11-18 09:02:004.78[facility] UwfoyyfEVHHICLQWW2412-13-14 09:02:75351Etlgwihd TxkgtzvAWWRLFHGVV6331-46-67 09:02:0092.2[facility] UTELHYGYZN6765-17-62 09:02:007.7[facility] OdmzdfwWNJLPSOFHK0299-26-25 09:02:00 14.9[facility] XohirpeCQUZXOHXGL5837-49-55 09:02:0013.7[facility] HermannTOXICOLOGY 2019-06-07 09:02:002.7[facility] HermannDRUG DXWMEQ5323-86-04 08:59:00See Note (06/07/19 3:59 AM)[facility]annDRUG DDLZKW3614-90-25 08:59:00Negative *NA*(06/07/19 3:59 AM)[facility]annDR[facility] CHLYZP9217-19-09 08:59:00Negative *NA*(06/07/19 3:59 AM)[facility] HermannDRUG JMLDRI3087-39-98 08:59:00Positive *ABN*(06/07/19 3:59 AM)[facility] HermannDRUG SCCQYB0552-75-67 08:59:00Positive *ABN*(06/07/19 3:59 AM)[facility] HermannDRUG UZGPNT4380-53-24 08:59:00Negative *NA*(06/07/19 3:59 AM)[facility] HermannDRUG HSJFCR6055-99-26 08:59:00Negative *NA*(06/07/19 3:59 AM)[facility] HermannDRUG QKHYEI6240-99-58 08:59:00Positive *ABN*(06/07/19 3:59 AM)[facility] PniudgzIQDQLNSAPJ2781-98-35 08:59:00Negative *NA*(06/07/19 3:59 AM)[facility] LucpaktHDTOOAZGKK9214-61-56 08:59:00<2 (06/07/19 3:59 AM)[facility]annURINE AND QHIGT4115-92-16 08:59:00Negative (06/07/19 3:59 AM)[facility] AND EYHGF3213-98-37 08:59:00Negative (06/07/19 3:59 AM) [facility] AMYMQ5716-05-36 08:59:000.2[facility] AND XHFAU4407-81-88 08:59:00Negative (06/07/19 3:59 AM)[facility] AND HNDLA1961-61-00 08:59:00Negative (06/07/19 3:59 AM)[facility] AND OPPGY8791-63-29 08:59:00Negative *NA*(06/07/19 3:59 AM)[facility] AND LTEVQ9606-22-72 08:59:00Negative (06/07/19 3:59 AM)[facility] AND QVXNJ8998-53-44 08:59:00Negative *NA*(06/07/19 3:59 AM)[facility] AND BENGU1811-39-63 08:59:00 Test Item Value Reference Range Interpretation Comments UA pH (test code = UA pH) 6.0 1 5.0-8.0 [facility] AND [id number] 08:59:00Yellow *NA*(06/07/19 3:59 AM) [facility] QYYKM3065-49-47 08:59:00 Test Item Value Reference Range Interpretation Comments UA Spec Grav (test code = UA Spec 1.020 1 Grav) [facility] YEAWF1220-28-83 08:59:00Clear (06/07/19 3:59 AM) [facility] QjjytuyQEKJKVHUCF2294-02-72 17:10:00<2 (05/24/19 12:10 PM)[facility] DdmvcafMELTXZFYPF9568-20-50 17:10:003.0[facility] UnfqfyxAEDCMJXRVW2247-48-76 17:10:00<3[facility] KscsiceHOWRQZPFFE5606-38-17 17:10:00<0.003[facility] HermannDRUG LMUREZ0877-18-12 17:02:00Negative *NA*(05/24/19 12:02 PM)[facility]annDR[facility] YHZMVE0586-24-29 17:02:00Negative *NA*(05/24/19 12:02 PM)[facility]annDR[facility] WXZVCD4700-27-58 17:02:00See Note (05/24/19 12:02 PM)[facility] DR[facility] EEQDPL3249-04-80 17:02:00Negative *NA*(05/24/19 12:02 PM)[facility] HermannDRUG FQLGGV7939-21-70 17:02:00Negative *NA*(05/24/19 12:02 PM)[facility]annDR[facility] ZMZHER9441-64-08 17:02:00Negative *NA*(05/24/19 12:02 PM)[facility]annDR[facility] YSDWMZ5186-46-89 17:02:00Negative *NA*(05/24/19 12:02 PM)[facility]annDR[facility] FOBYUO7383-91-56 17:02:00Positive *ABN*(05/24/19 12:02 PM)[facility] HermannCARDIAC LQWFTLN4843-25-77 11:33:00<0.02[facility] HermannCHEM DDYCW0294-75-82 11:33:00 7.5[facility] HermannCHEM RYIQC3073-51-41 11:33:003.6[facility] HermannCHEM PANEL 2019-05-24 11:33:0041[facility] HermannCHEM VSCYJ7489-83-19 11:33:05717Egmgibeq HermannCHEM COZJA1525-30-91 11:33:0055[facility] HermannCHEM PKQDH9819-51-61 11:33:000.6[facility] HermannCHEM XFZLY7064-90-45 11:33:009.4[facility] HermannCHEM ARXAZ0535-82-52 11:33:96790Yltvlrjj HermannCHEM TXZMV4434-73-69 11:33:0028 [facility]annCHEM IZDSO5718-99-13 11:33:0098[facility] HermannCHEM PANEL 2019-05-24 11:33:65499Ewaxyxtm HermannCHEM NJHUE0492-63-38 11:33:001.07[facility] HermannCHEM MXNRG5045-85-49 11:33:003.9[facility] HermannCHEM DMRKV3790-63-45 11:33:52676Pxgqjkxg HermannCHEM PCBAI4853-37-81 11:33:0013[facility] HermannCHEM BFUEN9328-29-79 11:33:00 Test Item Value Reference Range Interpretation Comments A/G Ratio (test code = A/G Ratio) 0.9 1 0.7-1.6 [facility] HermannCHEM BEINQ1169-94-70 11:33:003.9[facility] HermannCHEM PANEL 2019-05-24 11:33:00 Test Item Value Reference Range Interpretation Comments B/C Ratio (test code = B/C Ratio) 12 1 6-25 [facility] HermannCHEM XNKKF3969-41-65 11:33:009.9[facility] HermannHEMATOLOGY 2019-05-24 11:33:0010.7[facility] UpyrctuLQSRDXEUVM8229-49-77 11:33:004.60[facility] OhiljyqGNJRUDMQFO8129-21-80 11:33:00 Test Item Value Reference Range Interpretation Comments MCH (test code = MCH) 30.7 pg 27.0-31.0 [facility] FwgdilzBKUQXPRFBK2843-41-73 11:33:007.1[facility] HermannHEMATOLOGY 2019-05-24 11:33:0033.5[facility] YdwhpmaYHTRHIYOYC4313-84-93 11:33:40794Ziuwulmn ZhlxpceWGPDWDWRAI9603-56-27 11:33:0014.7[facility] AixufmtORZHHWKFYL0143-66-85 11:33:0042.1[facility] GjdsbxtLTNUSNKXHU2409-60-07 11:33:0091.4[facility] UAOPXPMFAZ7031-93-21 11:33:0014.1[facility] XqtvuypJHLGFDADDO1328-46-32 11:33:00 8.1[facility] GxlttcaHMZJPRZWYG5580-57-18 11:33:001.6[facility] HermannHEMATOLOGY 2019-05-24 11:33:0015.1[facility] NkdoapyJFVKJBKKTK3840-41-24 11:33:000.5[facility] KnmfmruAYTWWBRXZQ4998-28-64 11:33:000.1[facility] IipmgywQASNNAVNJL2578-59-01 11:33:008.4[facility] KuduxqbKYRRNYXGNU0791-79-94 11:33:000.6[facility] GBCUDIQVYJ4581-00-83 11:33:000.9[facility] DuenenxBYTULCFJRH5393-93-28 11:33:000.1 [facility] AbaliimFBNAAVGDYM0950-60-86 11:33:0075.4[facility] HermannIMMUNOLOGY 2019-05-24 11:33:00Negative *NA*(05/24/19 6:33 AM)[facility] AND STOOL 2016-04-24 11:14:0011-20 (04/24/16 6:14 AM)[facility] AND STOOL 2016-04-24 11:14:00Negative (04/24/16 6:14 AM)[facility] STOOL 2016-04-24 11:14:00Negative (04/24/16 6:14 AM)[facility] STOOL 2016-04-24 11:14:000.2[facility] AND HFXXM1314-61-19 11:14:00Moderate *ABN*(04/24/16 6:14 AM)[facility] AND QAEPJ9291-68-88 11:14:00Negative (04/24/16 6:14 AM)[facility] AND OSIJC3691-71-29 11:14:00Negative *NA*(04/24/16 6:14 AM)[facility] AND JKRSY0530-34-98 11:14:00Trace *ABN*(04/24/16 6:14 AM)[facility] HIXYS2345-37-35 11:14:00Clear (04/24/16 6:14 AM)[facility] AND ORJIY3258-54-11 11:14:00Yellow *NA*(04/24/16 6:14 AM)[facility] KCSAX8734-99-07 11:14:00 Test Item Value Reference Range Interpretation Comments UA pH (test code = UA pH) 5.5 1 5.0-8.0 [facility] ACJMH0483-39-11 11:14:00>=1.030 *ABN*(04/24/16 6:14 AM)[facility] ESQAH6785-64-10 09:36:004.4[facility]annCHE[facility] PANEL 2016-04-24 09:36:001.0[facility] SVFSW2714-51-45 09:36:0021.7[facility]CHE[facility] LHIAE9664-17-65 09:36:0014[facility] EEVPD9420-71-75 09:36:0059[facility] MMNBV6304-84-53 09:36:0018[facility] IPELT8865-97-84 09:36:009.0[facility]CHE[facility] GUWNY2220-01-20 09:36:72661 [facility] SSFXA5367-73-16 09:36:003.7[facility]annCHE[facility] PANEL 2016-04-24 09:36:0099[facility] KWGSD5057-82-75 09:36:74467Mfzgclre HermannCHEM IHZBN1383-58-83 09:36:000.8[facility]CHE[facility] TSPND5440-01-99 09:36:008.7[facility]annCHE[facility] OJBRJ9563-50-00 09:36:004.3[facility]CHE[facility] VSZFQ5273-18-10 09:36:0058[facility] LPHKW4053-77-99 09:36:00230 [facility] JBDQO4624-80-95 09:36:16894Xfwintpz HermannCHEM PANEL 2016-04-24 09:36:0024[facility]CHE[facility] JDZWE0686-50-86 09:36:001.66[facility]CHE[facility] QTMZT3738-67-87 09:36:0062[facility] DtaaqoaQQDMDPFVLY1063-97-51 09:36:008.3[facility] SwtqgvqHHTNPOIOPK5099-87-89 09:36:008.4[facility] QZSGIRTIYF0565-94-36 09:36:000.1[facility] YvrydwiEJXYDHPKWM4108-03-98 09:36:001.8 [facility] IrpyzvvNDLEIMZAJJ7368-96-53 09:36:0083.0[facility]annHEMATOLOGY 2016-04-24 09:36:001.8[facility] KonepzrFLVLKMHQCV9895-28-55 09:36:0018.2[facility] OrrbrjyVOWFXAJRHW7768-63-82 09:36:000.3[facility] RtvculsUFAZLIFSAH8797-11-27 09:36:008.3[facility] GgesywvPOACIIIMIZ2239-42-37 09:36:61060Lnfibglt Ryan KZLCIKIDEW3735-75-94 09:36:0014.9[facility] ZthmpvrYUXLMHKWIS7064-04-77 09:36:00 88.0[facility] OndduusFREBZHSRNV5215-23-66 09:36:0044.9[facility]annHEMATOLOGY 2016-04-24 09:36:0014.7[facility] IfaqpqnEJLLJWFOFR0653-33-99 09:36:0032.6[facility] WcscfouNMZRUOBALF3052-62-59 09:36:00 Test Item Value Reference Range Interpretation Comments MCH (test code = MCH) 28.7 pg 27.0-31.0 [facility] SjulaovQVAJAGZXOB9368-17-07 09:36:005.11[facility]annHEMATOLOGY 2016-04-24 09:36:0021.9[facility]annDRUG UKWGJP7491-72-61 15:33:00Negative *NA*(11/10/15 9:33 AM)[facility] [facility] [id number] 15:33:00Positive *ABN*(11/10/15 9:33 AM)[facility] [id number] 15:33:00Positive *ABN*(11/10/15 9:33 AM)[facility] [id number] 15:33:00Negative *NA*(11/10/15 9:33 AM)[facility] [id number] 15:33:00See Note (11/10/15 9:33 AM)[facility] [id number] 15:33:00Negative *NA*(11/10/15 9:33 AM)[facility] [id number] 15:33:00Positive *ABN*(11/10/15 9:33 AM)[facility] [id number] 15:33:00Positive *ABN*(11/10/15 9:33 AM)[facility] [id number] 15:33:00 Negative (11/10/15 9:33 AM)[facility] [id number] 15:33:00 >=1.030 *ABN*(11/10/15 9:33 AM)[facility] [id number] 15:33:00 Test Item Value Reference Range Interpretation Comments UA pH (test code = UA pH) 6.0 1 5.0-8.0 [facility] [id number] 15:33:00Negative (11/10/15 9:33 AM) [facility] [id number] 15:33:00Yellow *NA*(11/10/15 9:33 AM) [facility] [id number] 15:33:00Clear (11/10/15 9:33 AM) [facility] [id number] 15:33:00Negative (11/10/15 9:33 AM) [facility] [id number] 15:33:00Small *ABN*(11/10/15 9:33 AM) [facility] [id number] 15:33:001.0[facility] [id number] 15:33:00Negative (11/10/15 9:33 AM)[facility] 2015-11-10 15:19:75083Ktnqkrqr [facility] [id number] 15:19:001.0[facility] [id number] 15:19:0052[facility] [id number] 15:19:44001Jlbwnmrg [facility] [id number] 15:19:0033[facility] [id number] 15:19:003.8[facility] [id number] 15:19:0032 [facility] [id number] 15:19:009.0[facility] 2015-11-10 15:19:007.9[facility] [id number] 15:19:63530Ciiogcop [facility] [id number] 15:19:42565Viqcbiol [facility] [id number] 15:19:003.3[facility] SQDSI0810-57-97 15:19:001.00[facility] [id number] 15:19:0093[facility] [id number] 15:19:0011 [facility] [id number] 15:19:004.1[facility] 2015-11-10 15:19:000.9[facility] [id number] 15:19:0011[facility] [id number] 15:19:007.3[facility] [id number] 15:19:0076[facility] UGNBE8818-14-19 15:19:0087[facility] SWEJCJKTRD7084-14-00 15:19:004.91[facility] BerctswBGDNMCSUOY9685-24-31 15:19:00 10.0[facility] NnrrwhsVTRVTEVTGM7556-01-29 15:19:0013.9[facility]OLOG[facility] 2015-11-10 15:19:0042.7[facility] ImcrlgpAAKLJBKQOF1417-96-65 15:19:0032.6[facility] ZbjksczCLTAAUCZKW5459-63-76 15:19:0087.0[facility] TbcfdnnWISRZYUGEK7211-75-89 15:19:00 Test Item Value Reference Range Interpretation Comments MCH (test code = MCH) 28.4 pg 27.0-31.0 [facility] TgmyutwUQWXDBKFLK7546-05-06 15:19:0018.1[facility] 2015-11-10 15:19:81285Ggjaytsy NaclafvKQLMQREOTX7215-14-44 15:19:007.7[facility] NxdsdodWRJUCIJLAN4224-49-01 15:19:001.2[facility] XltrjhlSPNMPVHLWK3884-26-67 15:19:001.5[facility] CngcskfIAYWOTHAAH7613-90-90 15:19:000.1[facility] FPQGQYLKYJ7211-85-44 15:19:0014.4[facility] BhzwbubBOZLSCEFSG2805-72-36 15:19:00 12.3[facility] NtxobqdQGVTIXDMTG1730-94-77 15:19:001.3[facility] 2015-11-10 15:19:000.3[facility] EwgiripEVYNSPZMVA4489-80-27 15:19:007.2[facility] KutfbgcSBJBTXNOMG0866-40-22 15:19:0071.7[facility] HyvqwbpGGXSUAQATR4926-68-69 15:19:00<0.003[facility] FpjclgwDDVBDNZWYL0479-24-05 15:19:00<3[facility]
[2020-07-06 22:18] LABS: Absolute Lymphocytes (CBC) 3.2 K/uL (0.7-4.9); Basophils % 1.2 % (0-1.3); Hematocrit 47.6 % (39.6-49.0); Lymphocytes % 33.6 % (15.3-44.8); RBC Red Blood Cell Count 5.19 M/uL (4.33-5.43)
[2020-07-06 22:39] LABS: ALT/SGPT 93 U/L (12-78); AST/SGOT 85 U/L (15-37); Albumin 3.1 g/dL (3.4-5.0); Alkaline Phosphatase 125 U/L (45-117); BUN Blood Urea Nitrogen 9 mg/dL (7-18); Bicarbonate 25 mmol/L (21-32); Bilirubin Direct < 0.1 mg/dL (0-0.2); Bilirubin Total 0.3 mg/dL (0.2-1.0); Glucose Level 100 mg/dL (74-106); Lipase 101 U/L (73-393); Protein, Total 7.3 g/dL (6.4-8.2); Sodium Level 142 mmol/L (136-145)
[2020-07-06] MEDS ORDERED: ONDANSETRON 4 MG/2 ML VIAL ONE (22:47)
[2020-07-06] MEDS ORDERED: MORPHINE 4 MG/ML SYR ONE (22:47)
[2020-07-06] MEDS ORDERED: NA CHLORIDE 0.9% 1,000 ML ONE (22:47)
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
[2020-07-07 01:12] VITALS: TEMP 98.3
[2020-07-07 01:16] VITALS: BP 134/94; O2SAT 97
--- NOTE | 2020-07-07 10:18 | RAD REPORT ---
EXAM DESCRIPTION: CT - Abdomen Pelvis W Contrast - 07/07/2020 8:22 am CLINICAL HISTORY: ABD PAIN COMPARISON: None. TECHNIQUE: CT ABDOMEN PELVIS WITH IV CONTRAST on 07/06/2020 10:40 PM CDT This exam was performed according to our departmental dose-optimization program, which includes autom ated exposure control, adjustment of the mA and/or kV according to patient size and/or use of iterati ve reconstruction technique. FINDINGS: Lower lungs are clear. Abdomen: This is adjacent to the hepatic flexure of the colon but is overall indeterminate in etiolog y. There is no biliary dilatation. Gallbladder is normal in appearance. The pancreas is normal in siz e. Splenectomy was performed. There are several small splenules in the left upper quadrant. Adrenal g lands and left kidney are normal. There is a small lower pole right renal cyst. Abdominal aorta is normal in course and caliber without aneurysm. There is no free air. There is no r etroperitoneal adenopathy. There are postoperative changes of the posterior wall of the stomach. Pelvis: There is no bowel obstruction. Urinary bladder is unremarkable. There is no free fluid. Appen anil is normal. There is indeterminate inflammation in the anterior mid right abdomen. Skeleton: There are no acute osseous findings. No suspicious bony lesions. IMPRESSION: Nonspecific mild inflammation adjacent to the hepatic flexure of the colon in the mid ri ght abdomen anteriorly. Electronically signed by: Kolby Benjamin MD 07/06/2020 11:37 PM CDT Due to temporary technical issues with the PACS/Fluency reporting system, reports are being signed by the in house radiologist without review as a courtesy to ensure prompt reporting. The interpreting r adiologist is fully responsible for the content of the report.
== END 2020-07-07 00:38 | disposition home or self-care (01) ==
LOC: ER 21:18
DX: K92.1 Melena (principal); F17.210 Nicotine dependence, cigarettes, uncomplicated
CPT/HCPCS: 36415; 74177; 80048; 80076; 83690; 85025; 86850; 86900; 86901; 96361; 96374; 96375; 99284; J2405; J7030; Q9967

== ENCOUNTER 2020-09-18 04:06 | Emergency (ER) | payer OTHER, SELFPAY ==
--- OUTSIDE RECORDS SUMMARY | 2020-09-18 04:08 | XMS REPORT | Clinical Summary ---
:[address] [facility] Address [address] [place] [address] Care Team Providers Name Role Phone Unavailable [...] 20 yrs) 08/19/2020 Results Not on fileafter 09/18/2019 Insurance Payer Benefit Plan / Subscriber ID Effective Phone Address T ype Group Dates MEDICARE MEDICARE PART A xxxxxxxxxxx 2017-Pres [id number] [place] [address] [facility] SELF-PAY SELF-PAY xxxxxxxxx 2019-Prese [phone] [id number] [place] [address] [employer] SELF-PA[employer] SELF-PAY xxxxxxx 2020- [phone] [id number] [place] [address] Advance Directives Code Status Date Activated Date Inactivated Comments Full Code 06/26/2019 1:35 AM 06/27/2019 5:47 PM
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
--- OUTSIDE RECORDS SUMMARY | 2020-09-18 04:14 | XMS REPORT | Continuity of Care Document ---
:1975 Author Organization [facility] t Address [address] [place] [address] Care Team Providers Name Role Phone Lul [...] l 00:00: Ryan PSYCHOSIS 00 Active 06/06/2019 [facility] LEG PAIN Diagnosis Active 2019-05-24 M emoria 05-24 11:55:00 l LEG PAIN 00:00: Bebo n 00 Active 05/24/2019 [facility] BACK PAIN Diagnosis Active 2016-04-28 Memoria 04-24 22:08:00 l BACK 00:00: [place] PAIN 00 Active 04/24/2016 [facility] LEFT FLANK Diagnosis Active [id number] Memoria PAIN 2-23 22:00:00 l LEFT 00:00: Ryan FLANK PAIN 00 Active 11/10/2015 [facility] 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[facility] ris use use Health disorder disorder Cocaine Cocaine Disease Active Dora use use Health disorder disorder Marijuana Marijuana Disease Active [facility] ris use use Health Acute pain Acute pain Disease Active H arris of right of right Health wrist wrist Rib pain Rib pain Disease Active Harri s on left on left Health side side Visual Visual Disease Active Dora hallucinat hallucinat He alth ion ion Psychosis Psychosis Disease Active [facility] 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[facility] ris induced induced Health mood mood disorder disorder Cluster B Cluster B Disease Active Overview: Dora personalit personalit borderlin Health y disorder y disorder e, antisocia l features Acquired Problem Resolve 2019-06-09 Ct moria scoliosis d 21:19:26 l (disorder) Acquired He rmann scoliosis (disorder) Resolved Problem 06/09/2019 [facility] Allergies, Adverse Reactions, Alerts Allergy Allergy Status Severity Reaction(s) Onset Inactive Treating Comm ents Source Name Type Date Date Clinician No Known No Known Active Memori a Medicati Medicati l on on [place] Allergie Allergie s s Social History Social Habit Start Date Stop Date Quantity Comments Source History of tobacco Cigarette Smoker [facility] use Sex Assigned At [facility] alth Cigarettes smoked 2019-06-27 2019-06-27 [facility] current (pack per 00:00:00 00:00:00 day) - Reported Cigarette 2019-06-27 2019-06-27 [facility] pack-years 00:00:00 00:00:00 Alcohol intake 2019-06-27 2019-06-27 Current drinker [facility] 00:00:00 00:00:00 of alcohol (finding) Social History 2019-06-07 2019-06-07 [facility] 08:09:07 08:09:07 Alcohol Comment 2019-05-27 2019-05-27 daily drinker [facility] 00:00:00 00:00:00 Smoking Status Start Date Stop Date Source Current every day smoker 2019-06-27 00:00:00 [facility] Social [facility] Medications Ordered Filled Start Stop Current Ordering [...] hydroxide/M 7-20 (aluminum l g 10:12: hydroxide- [place] hydroxide/s 00 magnesium imethicone hyd-simeth icone 200-200-20 mg/5ml 30 ml ud FRANKIE) GI cocktail No 30 mL, Nathaniel olman (aluminum 7-20 Route: PO, l hydroxide/m 08:54: Dosing Herm zora agnesium 00 Weight hydroxide/l 93.182, idocaine/si kg, ONCE, methicone) STAT, Start date: 06/07/19 3:54:00 CDT, Stop date: 06/07/19 3:54:00 CDT Famotidine No Notes: Memor ia 7-20 (Same as: l 08:54: Pepcid) Ryan 00 Fentanyl No Notes: Memoria 04-24 (Same as: l 13:48: Sublimaze) [place] 00 Preservat kari free. Sodium No 1,000 mL, Memori a Chloride 04-24 1000 l 0.154 12:31: ml/hr, [place] MEQ/ML 00 Infuse Injectable Over: 1 Solution hr, Route: IV, 1,000, Drug form: INJ, ONCE, Priority: STAT, Dosing Weight 86.364 kg, Start date: 04/24/16 7:31:00 CDT, Duration: 1 doses or times, Stop date: 04/24/16 7:31:00 CDT Morphine No 4 mg, Memoria 04-24 Route: l 11:43: IVP, Drug [place] 00 form: INJ, ONCE, Dosing Weight 86.364, kg, Priority: STAT, Start date: 04/24/16 6:43:00 CDT, Stop date: 04/24/16 6:43:00 CDT Zofran No Notes: Memoria 04-24 (Same as: l 10:12: Zofran) Ryan MEDICATION WASTE Product Size: 4 mg Product Wasted: ___ mg Zofran No 4 mg, Memoria 04-24 Route: l 09:51: IVP, Drug Ryan form: INJ, ONCE, Dosing Weight 86.364, kg, Priority: STAT, Start date: 04/24/16 4:51:00 CDT, Stop date: 04/24/16 4:51:00 CDT Orphenadrin No 60 mg, 2 Me moria e 6-06 mL, Route: l 09:32: IVP, Drug [place] form: INJ, ONCE, Dosing Weight 86.364, kg, [...] 0.9% 04-24 Same as: l 09:09: BD Ryan 00 Posiflush Sterile Ibuprofen 2014-11 No Notes: Memori a 01-11 (Same as: l 22:31: Motrin) [place] 00 "Do Not Crush" Take with food. potassium 2014-11 No 20 mEq, Memor ia chloride 01-11 Route: PO, l 19:34: Drug form: [place] 00 ERTAB, ONCE, Dosing Weight 75, kg, Priority: STAT, Start date: 11/10/15 13:34:00, Stop date: 11/10/15 13:34:00 Ketorolac 2014-11 No 4 days Memor ia 2-23 l 15:08: MEDICATION Ryan 00 WASTE Product Size: 30 mg Product Wasted: ___ mg Saline 2014-11 No Notes: Memoria Flush 0.9% 2-23 Same as: l 15:08: BD [place] 00 Posiflush Sterile Vital Signs Vital Name Observation Time Observation Value Comments Source Respitory Rate 2019-06-07 14:10:00 Memori al [place] Temperature Oral (F) 2019-06-07 14:10:00 97.9 F [facility] Heart Rate 2019-06-07 14:10:00 [facility] Systolic (mm Hg) 2019-06-07 14:10:00 Nathaniel rial Ryan Diastolic (mm Hg) 2019-06-07 14:10:00 Mem orial [place] Temperature Oral (F) 2019-06-07 08:09:00 98.4 F [facility] [place] Respitory Rate 2019-06-07 08:09:00 Memori al [place] Heart Rate 2019-06-07 08:09:00 [facility] Systolic (mm Hg) 2019-06-07 08:09:00 Nathaniel rial Ryan Diastolic (mm Hg) 2019-06-07 08:09:00 Mem orial [place] BMI Calculated 2019-06-07 05:55:00 Memori al Ryan Weight 2019-06-07 05:55:00 [facility] Temperature Oral (F) 2019-06-07 05:55:00 98.4 F [facility] Respitory Rate 2019-06-07 05:55:00 Memori al [place] Heart Rate 2019-06-07 05:55:00 [facility] [place] Height 2019-06-07 05:55:00 185.42 cm [facility] Systolic (mm Hg) 2019-06-07 05:55:00 Nathaniel rial [place] Diastolic (mm Hg) 2019-06-07 05:55:00 Mem orial Ryan Temperature Oral (F) 2019-05-25 21:00:00 98.4 F [facility] Heart Rate 2019-05-25 21:00:00 [facility] [place] Respitory Rate 2019-05-25 21:00:00 Memori al [place] Systolic (mm Hg) 2019-05-25 21:00:00 Nathaniel rial [place] Diastolic (mm Hg) 2019-05-25 21:00:00 Mem orial [place] Heart Rate 2019-05-25 16:00:00 [facility] [place] Temperature Oral (F) 2019-05-25 16:00:00 98.1 F [facility] Respitory Rate 2019-05-25 16:00:00 Memori al [place] Systolic (mm Hg) 2019-05-25 16:00:00 Nathaniel rial [place] Diastolic (mm Hg) 2019-05-25 16:00:00 Mem orial [place] Heart Rate 2019-05-25 10:30:00 [facility] Temperature Oral (F) 2019-05-25 10:30:00 98.1 F [facility] [place] Respitory Rate 2019-05-25 10:30:00 Memori al Ryan Systolic (mm Hg) 2019-05-25 10:30:00 Nathaniel rial Ryan Diastolic (mm Hg) 2019-05-25 10:30:00 Mem orial Ryan Weight 2019-05-24 11:20:00 [facility] Systolic (mm Hg) 2016-04-24 13:43:00 Nathaniel rial Ryan Diastolic (mm Hg) 2016-04-24 13:43:00 Mem orial [place] Temperature Oral (F) 2016-04-24 13:43:00 97.8 F [facility] Respitory Rate 2016-04-24 13:43:00 Memori al [place] Heart Rate 2016-04-24 13:43:00 [facility] [place] Systolic (mm Hg) 2016-04-24 11:40:00 Nathaniel rial [place] Diastolic (mm Hg) 2016-04-24 11:40:00 Mem orial [place] Respitory Rate 2016-04-24 11:40:00 Memori al [place] Temperature Oral (F) 2016-04-24 11:40:00 97.8 F [facility] Heart Rate 2016-04-24 11:40:00 [facility] [place] Respitory Rate 2016-04-24 07:54:00 Memori al Ryan Temperature Oral (F) 2016-04-24 07:54:00 97.7 F [facility] [place] Height 2016-04-24 07:54:00 187.96 cm [facility] Weight 2016-04-24 07:54:00 [facility] [place] BMI Calculated 2016-04-24 07:54:00 Memori al [facility] Heart Rate 2016-04-24 07:54:00 [facility] Systolic (mm Hg) 2016-04-24 07:54:00 Nathaniel rial Ryan Diastolic (mm Hg) 2016-04-24 07:54:00 Mem orial Ryan Heart Rate 2015-11-11 06:39:00 [facility] [place] Temperature Oral (F) 2015-11-11 06:39:00 97.9 F [facility] [address] Respitory Rate 2015-11-11 06:39:00 Memori al [place] Systolic (mm Hg) 2015-11-11 06:39:00 Nathaniel rial [place] Diastolic (mm Hg) 2015-11-11 06:39:00 Mem orial [place] Systolic (mm Hg) 2015-11-11 04:23:00 Nathaniel rial Ryan Diastolic (mm Hg) 2015-11-11 04:23:00 Mem orial [place] Respitory Rate 2015-11-11 04:23:00 Memori al Ryan Heart Rate 2015-11-11 04:23:00 [facility] [place] Temperature Oral (F) 2015-11-11 04:23:00 97.7 F [facility] [place] Systolic (mm Hg) 2015-11-10 22:40:00 Nathaniel rial Ryan Diastolic (mm Hg) 2015-11-10 22:40:00 Mem orial [place] Respitory Rate 2015-11-10 22:40:00 Memori al [place] Heart Rate 2015-11-10 22:40:00 [facility] [address] Temperature Oral (F) 2015-11-10 22:40:00 97.7 F [facility] Weight 2015-11-10 14:41:00 [facility] Height 2015-11-10 14:41:00 185.42 cm [facility] [place] BMI Calculated 2015-11-10 14:41:00 Memori al [place] Procedures Procedure Date / Time Performed Performing Clinician Sour e Spinal operation [facility] Bbeo n Splenectomy [facility] [place] Plan of Care Planned Activity Planned Date Details Comments Source Future Scheduled Test 2020-08-19 00:00:00 IMM Influenza [facility] Seasonal Aug to January (>/= 19 yrs) [code = IMM Influenza Seasonal Aug to January (>/= 19 yrs)] Encounters Start End Encounter Admission Attending Care Care Encounter Source Date/Time Date/Time Type Type Clinicians Facility Department ID 2019-07-14 2019-07-14 Outpatient [facility] [id number] [address] [place] [address] 00:00:00 00:00:00 Health 2019-07-08 2019-07-08 Outpatient [facility] [id number] Dora 00:00:00 00:00:00 Health 2019-06-26 2019-06-26 Outpatient [facility] [id number] Dora 07:30:29 07:30:29 Health 2019-06-25 2019-06-25 Emergency [facility] [id number] Dora 22:51:50 22:51:50 Health 2019-06-25 2019-06-25 Outpatient [facility] [id number] Dora 08:00:22 08:00:22 Health 2019-06-12 2019-06-12 Outpatient [facility] [id number] Dora 00:00:00 00:00:00 [facility] 2019-06-07 2019-06-07 Outpatient Marty [facility] [id number] 00:31:47 09:47:00 Lizzy Mccarty 2019-06-07 2019-06-07 Emergency E [facility] [id number] [facility] 00:31:00 00:31:00 2019-06-06 2019-06-06 Emergency [facility] [id number] Dora 07:31:55 07:31:55 Health 2019-05-27 2019-05-27 Emergency [facility] [id number] Dora 09:49:06 09:49:06 Health 2019-05-27 2019-05-27 Emergency [facility] [id number] Dora 08:10:12 08:10:12 [facility] 2019-05-24 2019-05-25 Outpatient Ricardo [facility] [id number] 06:15:41 16:59:00 Danieljavy Baez 2019-05-24 2019-05-24 Emergency E [facility] [id number] [facility] 06:15:00 06:15:00 2016-04-24 2016-04-24 Outpatient Obi [facility] [id number] 02:42:00 09:36:00 Cristel osorio 01 Uma 2015-11-10 2015-11-11 Outpatient Logan Xavier [facility] [id number] 08:40:00 00:48:00 Oscar 00 Results Test Description [...] = Expiration Dt) 09/18/2020 N Thyroid Stimulating [id number] 04:02:31 Test Item Value Reference Range Interpretation Comments TSH (test code = TSH) 1.240 mIU/mL 0.270-4.200 Lipid [id number] 03:53:56 Test Item Value Reference Range Interpretation Comments Cholesterol Total 198 mg/dL 0-200 RISK OF HE ART (test code = DISEASEPublishe d by Cholesterol Total) [employer] Adenike lyte Optimal Borderl ine [...] LDL/HDL Ratio=L DL Calc/HDL Chol Comprehensive Metabolic [id number] 09:03:57 Test Item Value Reference Range Interpretation [...] National Kidney Foundation, http://nkdep.ni h.gov Comprehensive Metabolic [id number] 09:03:57 Test Item Value Reference Range Interpretation [...] the National Kidney Foundation, http://nkdep.ni h.gov Alcohol [id number] 09:03:57 Test Item Value Reference Range Interpretation Comments Ethanol Level (test <0.00 g/dL 0.00-0.01 Intoxica maury 0.080 g/dL code = Ethanol or more Level) Ethanol Inst (test <0 N code = Ethanol Inst) Comprehensive Metabolic [id number] 09:03:57 Test Item Value Reference Range Interpretation [...] ag e have not been validated by [facility] MDRD study and should be interpreted [...] ag e have not been validated by [facility] MDRD study and should be interpreted wit h caution. eGFR R esult Interpretation: eGFR > or = 60 is in the Normal RangeeGF R < 60 may mean kid alexey diseaseeGFR < 1 5 may mean kidney failure Rang es recommended by the National Kidney Foundation, http://nkdep.ni h.gov Urine Drug [id number] 09:00:04 Test Item Value Reference Range Interpretation [...] if desired . Complete Blood Count with [id number] 08:56:00 Test Item Value Reference Range Interpretation [...] code = IPF) 0 % N Automated [id number] 08:56:00 Test Item Value Reference Range Interpretation Comments Neutro Auto (test code = Neutro 60.3 % 36.0-70.0 Auto) Lymph Auto (test code = Lymph Auto) 25.4 % 12.0-44.0 [place] Auto (test code = [place] Auto) 11.8 % 0.0-11.0 H Eos, Auto (test code = Eos, Auto) 1.8 % 0.0-7.0 Basophil Auto (test code = Basophil 0.3 % 0.0-2.0 Auto) Neutro Absolute (test code = Neutro 8.2 x10 1.6-7.4 H Absolute) Lymph Absolute (test code = Lymph 3.45 x10 .50-4.60 Absolute) [place] Absolute (test code = [place] 1.60 x10 .00-1.20 H Absolute) Eos Absolute (test code = Eos 0.25 x10 0.00-0.74 Absolute) Baso Absolute (test code = Baso 0.04 x10 0.00-0.21 Absolute) IG [id number] 08:56:00 Test Item Value Reference Range Interpretation Comments IG (test code = IG) 0.4 % 0.0-5.0 IG Abs (test code = IG Abs) 0 x10 N Hepatic Function [id number] 07:34:47 Test Item Value Reference Range Interpretation [...] g/dL 2.9-3.1 L = Globulin) Hepatic Function [id number] 08:08:04 Test Item Value Reference Range Interpretation [...] g/dL 2.9-3.1 L = Globulin) US Abdomen Cpnwmst6570-79-00 02:36:18Patient: PAULO GARCIA Date/Time06/08/2019 21:54 CDTReason for ExamElevated liver function testReportAFTER HOURS SERVICE ON: 06/09/2019 2:35 AMA bdominal Ultrasound, Right Upper QuadrantLocation Code B12Tmeksgo: Elevated liver function testTechnique: Real-time silva scale, [...] Mohammad TSigned (Electronic Signature): 06/09/2019 2:36 amRPR [id number] 10:51:41 Test Item Value Reference Range Interpretation Comments RPR Qual (test code = RPR Qual) Non-Reactive Non-Reactive Reactive Control (test code = Reactive Reactive Control) Weak Reactive Control (test Weak Reactive code = Weak Reactive Control) Non-Reactive Control (test code Non-Reactive = Non-Reactive Control) Lot # (test code = Lot #) [id number] N Expiration Dt (test code = 10.31.20 N Expiration Dt) Thyroid Stimulating [id number] 08:39:04 Test Item Value Reference Range Interpretation Comments TSH (test code = TSH) 0.815 mIU/mL 0.270-4.200 Hemoglobin [id number] 03:57:32 Test Item Value Reference Range Interpretation Comments Hemoglobin A1c (test code 5.5 % 4.8-5.9 No n Diabetic = Hemoglobin A1c) 4.8-5.9%Di abetic <7.0% Aspartate Rokqhkhmbistpsfz7509-36-05 23:35:01 Test Item Value Reference Range Interpretation Comments AST (test code = AST) 622 U/L 1-40 H Alkaline [id number] 23:35:01 Test Item Value Reference Range Interpretation Comments Alk Phos (test code = Alk Phos) 120 U/L 40-129 Acetaminophen [id number] 21:52:40 Test Item Value Reference Range Interpretation Comments Acetaminophen Level (test code <15.0 ug/mL(g) 15.0-30.0 = Acetaminophen Level) Salicylate [id number] 21:52:40 Test Item Value Reference Range Interpretation Comments Salicylate Level (test code = <0.3 mg/dL 0.3-10.0 Salicylate Level) Lipase [id number] 21:52:39 Test Item Value Reference Range Interpretation Comments Lipase Level (test code = Lipase 19 U/L 13-60 Level) Acute Hepatitis [id number] 21:21:54 Test Item Value Reference Range Interpretation Comments Hep A IgM (test code = Hep A IgM) Nonreactive Non Reactive Hep B Core Ab IgM (test code = Nonreactive Non Reactive Hep B Core Ab IgM) Hep Bs Ag (test code = Hep Bs Ag) Nonreactive Non Reactive Hep C Ab (test code = Hep C Ab) Reactive Non Reactive A Ammonia [id number] 20:53:09 Test Item Value Reference Range Interpretation Comments Ammonia Level (test code = 46.0 umol/L 11.0-35.0 H Ammonia Level) Prothrombin Time and [id number] 20:48:56 Test Item Value Reference Range Interpretation Comments Prothrombin Time (test code = 12.9 seconds 9.8-13.4 Prothrombin Time) INR (test code = INR) 1.1 ratio 0.6-1.2 Partial Thromboplastin [id number] 20:48:56 Test Item Value Reference Range Interpretation Comments Partial Thromboplastin Time 29.20 seconds 24.39-37.25 (test code = Partial Thromboplastin Time) Comprehensive Metabolic [id number] 19:11:35 Test Item Value Reference Range Interpretation [...] A/G 1.4 ratio N Ratio) Comprehensive Metabolic [id number] 19:11:35 Test Item Value Reference Range Interpretation [...] the National Kidney Foundation, http://nkdep.ni h.gov Alcohol [id number] 19:11:35 Test Item Value Reference Range Interpretation Comments Ethanol Level (test 0.15 g/dL 0.00-0.01 H Intoxica maury 0.080 g/dL code = Ethanol or more Level) Ethanol Inst (test 150 N code = Ethanol Inst) Comprehensive Metabolic [id number] 19:11:35 Test Item Value Reference Range Interpretation [...] Foundation, http://nkdep.ni h.gov Drugs of Abuse Urine [id number] 19:10:52 Test Item Value Reference Range Interpretation [...] (test code = Cannabinoid Screen Ur) Automated [id number] 18:00:02 Test Item Value Reference Range Interpretation Comments Neutro Auto (test code = Neutro 64.1 % 36.0-70.0 Auto) Lymph Auto (test code = Lymph Auto) 22.7 % 12.0-44.0 [place] Auto (test code = [place] Auto) 11.1 % 0.0-11.0 H Eos, Auto (test code = Eos, Auto) 1.5 % 0.0-7.0 Basophil Auto (test code = Basophil 0.3 % 0.0-2.0 Auto) Neutro Absolute (test code = Neutro 6.0 x10 1.6-7.4 Absolute) Lymph Absolute (test code = Lymph 2.13 x10 .50-4.60 Absolute) [place] Absolute (test code = [place] 1.04 x10 .00-1.20 Absolute) Eos Absolute (test code = Eos 0.14 x10 0.00-0.74 Absolute) Baso Absolute (test code = Baso 0.03 x10 0.00-0.21 Absolute) IG [id number] 18:00:02 Test Item Value Reference Range Interpretation Comments IG (test code = IG) 0.3 % 0.0-5.0 IG Abs (test code = IG Abs) 0 x10 N Complete Blood Count with [id number] 18:00:01 Test Item Value Reference Range Interpretation [...] code = IPF) 0 % N CHEM [id number] 09:02:00 Test Item Value Reference Range Interpretation Comments B/C Ratio (test code = B/C Ratio) 14 1 6-25 [facility] Monkey Puzzle MediaannCHEM [id number] 09:02:0013.4Memoriil HermannCHEM PANEL 2019-06-07 09:02:00 Test Item Value Reference Range Interpretation Comments A/G Ratio (test code = A/G Ratio) 0.8 1 0.7-1.6 [facility] Monkey Puzzle MediaannCHEM [id number] 09:02:004.3[facility] HermannCHEM PANEL 2019-06-07 09:02:07285Arvgaayi HermannCHEM WFJHD1574-58-21 09:02:000.96[facility] HermannCHEM [id number] 09:02:0013Memorial HermannCHEM [id number] 09:02:37579Ldnuoxvj HermannCHEM FXJHR9449-04-37 09:02:004.4[facility] HermannCHEM [id number] 09:02:0090Mem[facility] HermannCHEM YRGUL3652-04-28 09:02:009.3 [facility] HermannCHEM [id number] 09:02:0027[facility] HermannCHEM PANEL 2019-06-07 09:02:15113Ensmyuer HermannCHEM [id number] 09:02:007.7[facility] HermannCHEM [id number] 09:02:44102Drvmrmkm HermannCHEM HWADX1776-91-77 09:02:003.4[facility] HermannCHEM [id number] 09:02:61830Wwpsqvrl HermannCHEM IHLAI9773-19-36 09:02:18725Jphycjxj HermannCHEM WTRET6391-27-73 09:02:000.4 [facility] HermannCHEM [id number] 09:02:0063[facility] HermannHEMATOLOGY 2019-06-07 09:02:000.6[facility] IokydzhPJRNXGNHQU0812-48-22 09:02:001.4[facility] CpsyuehTDKGAHTLPR9383-75-27 09:02:000.2[facility] BglezflQNTUOCVCHL9080-70-82 09:02:001.6[facility] CaphyjvFLUNGASKLE7185-95-71 09:02:000.1[facility] [place] FSQWLYCWSC6400-82-61 09:02:002.8[facility] JqenqtoYXJRPAVXHQ4217-13-10 09:02:009.0 Memorial YdhudtwMZDZMCWRKZ3605-08-48 09:02:0011.8[facility] HermannHEMATOLOGY 2019-06-07 09:02:0020.3[facility] UxklfdkIDEJKGXUPB8071-87-20 09:02:0065.9[facility] PgoxtkhRFYQTIAGVW9940-96-68 09:02:00 Test Item Value Reference Range Interpretation Comments MCH (test code = MCH) 30.3 pg 27.0-31.0 [facility] KirgvdzXGOPHLPLNX7314-53-37 09:02:0032.8[facility] HermannHEMATOLOGY 2019-06-07 09:02:0044.1[facility] JnmaykbNUMJZARUHH6775-18-28 09:02:0014.5[facility] NjlnahfHLOEWAMLVH7799-89-65 09:02:004.78[facility] NyoypqeALRDANIAVS1548-21-35 09:02:71163Oytqwltf CsgazxmNPYUPWISQX3564-03-27 09:02:0092.2[facility] [place] [id number] 09:02:007.7[facility] SrvzvpxOVRMHGELHY5669-17-07 09:02:00 14.9[facility] GudbagfMUOPVCYBBC3932-71-87 09:02:0013.7[facility] HermannTOXICOLOGY 2019-06-07 09:02:002.7[facility] HermannDRUG [id number] 08:59:00See Note (06/07/19 3:59 AM)[facility] HermannDRUG [id number] 08:59:00Negative *NA*(06/07/19 3:59 AM)[facility] HermannDRUG [id number] 08:59:00Negative *NA*(06/07/19 3:59 AM)[facility] HermannDRUG [id number] 08:59:00Positive *ABN*(06/07/19 3:59 AM)[facility] HermannDRUG DEEOER9366-00-78 08:59:00Positive *ABN*(06/07/19 3:59 AM)[facility] HermannDRUG [id number] 08:59:00Negative *NA*(06/07/19 3:59 AM)[facility] HermannDRUG [id number] 08:59:00Negative *NA*(06/07/19 3:59 AM)[facility] HermannDRUG [id number] 08:59:00Positive *ABN*(06/07/19 3:59 AM)[facility] IfdvuihZTWXGRMBNW1471-62-49 08:59:00Negative *NA*(06/07/19 3:59 AM)[facility] NugftrmBYUQNXEOVC5748-56-06 08:59:00<2 (06/07/19 3:59 AM)[facility] HermannURINE AND [id number] 08:59:00Negative (06/07/19 3:59 AM)[facility] HermannURINE AND IAYIU5903-49-24 08:59:00Negative (06/07/19 3:59 AM) [facility] AND TGBTH1587-30-14 08:59:000.2[facility]annUR[facility] AND HENIJ3789-02-62 08:59:00Negative (06/07/19 3:59 AM)[facility] AND [id number] 08:59:00Negative (06/07/19 3:59 AM)[facility]ann[facility] AND IQYOI4798-01-11 08:59:00Negative *NA*(06/07/19 3:59 AM)[facility]ann[facility] AND [id number] 08:59:00Negative (06/07/19 3:59 AM)[facility]annUR[facility] AND NJEUZ0730-21-28 08:59:00Negative *NA*(06/07/19 3:59 AM)[facility]annUR[facility] AND [id number] 08:59:00 Test Item Value Reference Range Interpretation Comments UA pH (test code = UA pH) 6.0 1 5.0-8.0 [facility]ann[facility] AND [id number] 08:59:00Yellow *NA*(06/07/19 3:59 AM) [facility] AND [id number] 08:59:00 Test Item Value Reference Range Interpretation Comments UA Spec Grav (test code = UA Spec 1.020 1 Grav) [facility] AND [id number] 08:59:00Clear (06/07/19 3:59 AM) [facility] JypyvxiEIHNKMFOVB8328-25-17 17:10:00<2 (05/24/19 12:10 PM)[facility] TuqzcufQMVUIHYCAL2963-04-55 17:10:003.0[facility] SlulvbdPRTXJCINLK4447-41-27 17:10:00<3[facility] NgiztomGUSRVNXSBO6886-89-46 17:10:00<0.003[facility] HermannDRUG [id number] 17:02:00Negative *NA*(05/24/19 12:02 PM)[facility] HermannDRUG NDKITQ1496-46-25 17:02:00Negative *NA*(05/24/19 12:02 PM)[facility] HermannDRUG [id number] 17:02:00See Note (05/24/19 12:02 PM)[facility] [id number] 17:02:00Negative *NA*(05/24/19 12:02 PM)[facility] Hermann[facility] [id number] 17:02:00Negative *NA*(05/24/19 12:02 PM)[facility] [id number] 17:02:00Negative *NA*(05/24/19 12:02 PM)[facility] [id number] 17:02:00Negative *NA*(05/24/19 12:02 PM)[facility] [id number] 17:02:00Positive *ABN*(05/24/19 12:02 PM)[facility] [id number] 11:33:00<0.02[facility] [id number] 11:33:00 7.5[facility] [id number] 11:33:003.6[facility] PANEL 2019-05-24 11:33:0041[facility] [id number] 11:33:34854Ajxtqiwb HermannCHEM [id number] 11:33:0055[facility] KQAJL9327-89-73 11:33:000.6[facility] GKRSX8823-14-94 11:33:009.4[facility]annCHE[facility] YVJME6755-14-21 11:33:00210Zsvpnfja HermannCHEM RGSIG3909-07-70 11:33:0028 [facility] VLVUF5153-52-79 11:33:0098[facility] PANEL 2019-05-24 11:33:60323Ujdzljzx HermannCHEM HMWZG8175-06-29 11:33:001.07[facility] NKIHZ5943-64-57 11:33:003.9[facility] FDYQS1701-26-94 11:33:08677Wbfvcrqi HermannCHEM FTBJR9695-37-06 11:33:0013[facility] FDOPE6123-22-06 11:33:00 Test Item Value Reference Range Interpretation Comments A/G Ratio (test code = A/G Ratio) 0.9 1 0.7-1.6 [facility] HermannCHEM FUGNP4926-46-38 11:33:003.9[facility]ann[facility] PANEL 2019-05-24 11:33:00 Test Item Value Reference Range Interpretation Comments B/C Ratio (test code = B/C Ratio) 12 1 6-25 [facility] HermannCHEM DVRSP3911-19-29 11:33:009.9[facility]annHEMATOLOGY 2019-05-24 11:33:0010.7[facility] MrhaxtfNGFGYBQNOW0946-00-49 11:33:004.60[facility] SowlnheTBWENCHALS9425-58-97 11:33:00 Test Item Value Reference Range Interpretation Comments MCH (test code = MCH) 30.7 pg 27.0-31.0 [facility] NsiyadzTARVEHQLQW0881-31-02 11:33:007.1[facility]annHEMATOLOGY 2019-05-24 11:33:0033.5[facility] QysfgtoHGXAQBGRAG0825-49-78 11:33:85620Chstjmvw UnrfcjhTKRXDPBLTT1296-65-14 11:33:0014.7[facility] PxrtkkyPQKINMBBJO5725-66-35 11:33:0042.1[facility] ZoqfzndZRFCDUJYBV2570-89-25 11:33:0091.4[facility] YTPALSBRTD4193-41-57 11:33:0014.1[facility] XhpaezyUZBMTEXXPY0677-16-52 11:33:00 8.1[facility] UsmsieoEQNQOKTPRY3066-61-51 11:33:001.6[facility]annHEMATOLOGY 2019-05-24 11:33:0015.1[facility] WenofpkMNUJWHUUVW2223-56-06 11:33:000.5[facility] FsfclwhANXPFHYESQ9835-78-29 11:33:000.1[facility] BibipkyZDPVKVMHBQ2499-11-19 11:33:008.4[facility] ZcjytmwMTMKIXWZIN4268-98-52 11:33:000.6[facility] LRDAVDVDEI9516-98-24 11:33:000.9[facility] OebflvaKXLNEANWRG1364-12-40 11:33:000.1 [facility] IbnmfmkAQDDHSBKTV8304-41-93 11:33:0075.4[facility] HermannIMMUNOLOGY 2019-05-24 11:33:00Negative *NA*(05/24/19 6:33 AM)[facility] STOOL 2016-04-24 11:14:0011-20 (04/24/16 6:14 AM)[facility] STOOL 2016-04-24 11:14:00Negative (04/24/16 6:14 AM)[facility] STOOL 2016-04-24 11:14:00Negative (04/24/16 6:14 AM)[facility] STOOL 2016-04-24 11:14:000.2[facility] UJVIS6941-42-47 11:14:00Moderate *ABN*(04/24/16 6:14 AM)[facility] KNHHW2508-24-10 11:14:00Negative (04/24/16 6:14 AM)[facility] TGIGQ2690-12-31 11:14:00Negative *NA*(04/24/16 6:14 AM)[facility] RSCMG1973-90-58 11:14:00Trace *ABN*(04/24/16 6:14 AM)[facility] IDDVK2108-62-92 11:14:00Clear (04/24/16 6:14 AM)[facility] ADSVK1925-45-82 11:14:00Yellow *NA*(04/24/16 6:14 AM)[facility] XLYTI7955-74-62 11:14:00 Test Item Value Reference Range Interpretation Comments UA pH (test code = UA pH) 5.5 1 5.0-8.0 [facility] ZVPPQ5273-47-08 11:14:00>=1.030 *ABN*(04/24/16 6:14 AM)[facility] MBCXR5757-98-99 09:36:004.4[facility]annCHEM PANEL 2016-04-24 09:36:001.0[facility] QHLSL9917-85-76 09:36:0021.7[facility]annCHE[facility] TOXCM8814-31-35 09:36:0014[facility]CHE[facility] BENST6960-13-54 09:36:0059[facility] RVYDD3395-00-40 09:36:0018[facility] XTPRM4809-22-84 09:36:009.0[facility] YYPKM4417-77-20 09:36:04217 [facility] TMEPR1977-20-96 09:36:003.7[facility]annCHEM PANEL 2016-04-24 09:36:0099[facility] BYUUO7599-39-75 09:36:74278Qixhymql HermannCHEM RRDFT0555-36-50 09:36:000.8[facility] KVGJS9111-38-67 09:36:008.7[facility] QWCFK4457-79-19 09:36:004.3[facility] SXFLK7780-81-32 09:36:0058[facility]CHE[facility] OZLOO9031-41-36 09:36:38074 [facility] OTAZP8475-29-90 09:36:36183Rlppztkd HermannCHEM PANEL 2016-04-24 09:36:0024[facility]CHE[facility] QJJKG6908-47-68 09:36:001.66[facility]annCHE[facility] BXNYC6241-60-85 09:36:0062[facility] MmlwvxaKLGUBBHKME8333-68-04 09:36:008.3[facility] SwolkhnIGNYRKNNVW7893-84-32 09:36:008.4[facility] BAFJZHCIFB3034-63-85 09:36:000.1[facility] ZipssohNMWOLEASXJ0756-50-66 09:36:001.8 [facility] RurnrzsFJPLZULXUI3068-22-75 09:36:0083.0[facility]annHEMATOLOGY 2016-04-24 09:36:001.8[facility] FuxcfhrVTSKAYKFAL6801-88-76 09:36:0018.2[facility] DwlfagkRAAKUJZROT6399-96-11 09:36:000.3[facility] KkehsnsWOBGUGYKVF2996-41-06 09:36:008.3[facility] UfjbssnHBNMOWTJZJ0301-44-73 09:36:57408Vkuozylh Ryan UTRMMHTQWZ7676-04-57 09:36:0014.9[facility] StcpvypLQWJZBOHER2164-55-59 09:36:00 88.0[facility] BvwzpgoRSYGARKAKH3267-22-29 09:36:0044.9[facility]annHEMATOLOGY 2016-04-24 09:36:0014.7[facility] ExsgvtvEBRJRDJREY1012-56-37 09:36:0032.6[facility] TrkfvtsZYISZNGLRK5522-17-36 09:36:00 Test Item Value Reference Range Interpretation Comments MCH (test code = MCH) 28.7 pg 27.0-31.0 [facility] IdethlkNCSYTQNESY2329-22-27 09:36:005.11[facility]annHEMATOLOGY 2016-04-24 09:36:0021.9[facility]annDRUG FTGDMF1110-95-36 15:33:00Negative *NA*(11/10/15 9:33 AM)[facility] WPFOMT5443-69-91 15:33:00Positive *ABN*(11/10/15 9:33 AM)[facility] MEFIXE0438-71-89 15:33:00Positive *ABN*(11/10/15 9:33 AM)[facility] ITXUQI8481-97-44 15:33:00Negative *NA*(11/10/15 9:33 AM)[facility] TIURUR7181-01-82 15:33:00See Note (11/10/15 9:33 AM)[facility] ORFTNX5152-74-23 15:33:00Negative *NA*(11/10/15 9:33 AM)[facility] FHDLBW0701-48-20 15:33:00Positive *ABN*(11/10/15 9:33 AM)[facility] WLUSAL1774-45-94 15:33:00Positive *ABN*(11/10/15 9:33 AM)[facility] VWONT7231-35-06 15:33:00 Negative (11/10/15 9:33 AM)[facility] WCFEC8965-58-99 15:33:00 >=1.030 *ABN*(11/10/15 9:33 AM)[facility] LXVGJ9172-49-44 15:33:00 Test Item Value Reference Range Interpretation Comments UA pH (test code = UA pH) 6.0 1 5.0-8.0 [facility] EUYFZ3695-58-33 15:33:00Negative (11/10/15 9:33 AM) [facility] ZFFZH2975-31-25 15:33:00Yellow *NA*(11/10/15 9:33 AM) [facility] ENIZB8849-83-87 15:33:00Clear (11/10/15 9:33 AM) [facility] SDMQW2409-08-47 15:33:00Negative (11/10/15 9:33 AM) [facility] FIEOD2393-02-69 15:33:00Small *ABN*(11/10/15 9:33 AM) [facility] HAJGO0606-32-88 15:33:001.0[facility] ZYAZP2818-40-26 15:33:00Negative (11/10/15 9:33 AM)[facility]annCHEM PANEL 2015-11-10 15:19:26421Vnqyinmj HermannCHEM NOHTJ3568-67-92 15:19:001.0[facility]annCHE[facility] VZZAH0075-36-56 15:19:0052[facility]CHE[facility] NHPQS9380-71-66 15:19:23881Hdgzueql HermannCHEM KEQAI3754-06-70 15:19:0033[facility]CHE[facility] GGGNV1349-62-05 15:19:003.8[facility]CHE[facility] URMOK6140-00-18 15:19:0032 [facility] YGTLT6991-95-22 15:19:009.0[facility]annCHEM PANEL 2015-11-10 15:19:007.9[facility]annCHE[facility] GFDYY9831-64-43 15:19:63587Gsikagzt HermannCHEM KCKUB4015-42-66 15:19:73697Vwweezuj [facility]annCHEM GOWTC7142-43-43 15:19:003.3[facility]CHE[facility] VULMQ5289-71-47 15:19:001.00[facility]annCHE[facility] HGEEI7505-64-85 15:19:0093[facility]CHE[facility] UXVPA2632-69-45 15:19:0011 [facility] FZUEK0914-28-37 15:19:004.1[facility]annCHEM PANEL 2015-11-10 15:19:000.9[facility]annCHE[facility] TUINO6268-21-10 15:19:0011[facility]CHE[facility] YCWKR8311-73-84 15:19:007.3[facility]annCHE[facility] PMHGK9484-08-72 15:19:0076[facility]CHE[facility] TEQLB3198-30-52 15:19:0087[facility] OTBOIVIUIO0142-02-04 15:19:004.91[facility] PzzxymlBMXTBDDARP4207-06-18 15:19:00 10.0[facility] XkfdtwaLDFIRGBQLF6452-01-12 15:19:0013.9[facility]annHEMATOLOGY 2015-11-10 15:19:0042.7[facility] OrydqntKOXNQVIHZZ5558-04-10 15:19:0032.6[facility] ZsnlpjsKPEUBDDMRF0121-11-73 15:19:0087.0[facility] GtrhtyeXPCNVYCAKD5326-37-65 15:19:00 Test Item Value Reference Range Interpretation Comments MCH (test code = MCH) 28.4 pg 27.0-31.0 [facility] AdbbhplARAPVICZNM0214-65-73 15:19:0018.1[facility]annHEMATOLOGY 2015-11-10 15:19:85211Zfgmsgmb ZydfhdmFIVVAIBZQR4502-50-27 15:19:007.7[facility] UpribvvMRIIZYAKZV1788-00-09 15:19:001.2[facility] RuiyvwkGIPWWFGFAD5435-56-06 15:19:001.5[facility] LxxavstPBPUJAWFDX2490-36-78 15:19:000.1[facility] CRSFVFEBJV6237-24-44 15:19:0014.4[facility] IaipqmyRIIZFYEHYW1694-00-36 15:19:00 12.3[facility] WlfawdfBNNKQWEQEI9336-97-20 15:19:001.3[facility] HermannHEMATOLOGY 2015-11-10 15:19:000.3[facility] JbckfgaGIQUORAYEI2274-28-93 15:19:007.2[facility] IvxeizqZAURZIMTSH2219-63-18 15:19:0071.7[facility] JwpjrhpIZSUJFFTUR0780-78-61 15:19:00<0.003[facility] AyzrpmhOOMQGBWFFB0416-01-56 15:19:00<3[facility]
[2020-09-18 04:42] LABS: Absolute Lymphocytes (CBC) 2.6 K/uL (0.7-4.9); Basophils % 0.8 % (0-1.3); Hematocrit 44.8 % (39.6-49.0); Lymphocytes % 29.7 % (15.3-44.8); MPV 7.8 fL (7.6-11.3); RBC Red Blood Cell Count 4.88 M/uL (4.33-5.43)
[2020-09-18 05:02] LABS: BUN Blood Urea Nitrogen 10 mg/dL (7-18); Bicarbonate 28 mmol/L (21-32); Glucose Level 122 mg/dL (74-106); Potassium 3.7 mmol/L (3.5-5.1); Sodium Level 141 mmol/L (136-145)
[2020-09-18] MEDS ORDERED: MEPERIDINE HCL 25 MG/ML SYR ONE (05:05)
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
[2020-09-18 06:59] VITALS: O2SAT 100
[2020-09-18 07:01] VITALS: BP 152/101; TEMP 98.5
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
== END 2020-09-18 06:48 | disposition home or self-care (01) ==
LOC: ER 04:06
DX: S39.012A Strain of muscle, fascia and tendon of lower back, initial encounter (principal); V49.40XA Driver injured in collision with unspecified motor vehicles in traffic accident, initial encounter; F17.210 Nicotine dependence, cigarettes, uncomplicated; Z98.84 Bariatric surgery status
CPT/HCPCS: 85025; 80048; 36415; 82565; 74160; 71260; 96374; 99284; Q9967; J2175